=== PATIENT | male | born 1945 | race Caucasian/White ===

== ENCOUNTER 2021-11-06 17:55 | Inpatient (IN) | payer MEDICARE, OTHER, SELFPAY ==
--- NOTE | ~2021-11-06 | CT_ITS ---
EXAMINATION: CT CHEST WITHOUT CONTRAST CLINICAL INFORMATION: Question left lung nodule COMPARISON: Previous chest x-rays from earlier this month TECHNIQUE: Multidetector volumetric CT imaging of the chest was done. Axial MIP volume rendering provided. Sagittal and coronal reformatted images were obtained. This CT examination was performed using dose optimization techniques as appropriate, variously including the following: *Automated exposure control *Adjustment of mA and/or kV according to patient size (this includes techniques or standardized protocols for targeted exams where dose is matched to indication/reason for exam; i.e. extremities or head) *Use of iterative reconstruction technique DLP: 338 mGy-cm FINDINGS: PHARMACY OPERATIONS SPECIALIST: Unremarkable LUNGS: Exam is limited due to artifact from respiratory motion. The lung volumes are low. The lungs are clear. No pulmonary nodule is seen. No endobronchial or endotracheal lesion. MEDIASTINUM: Small mediastinal lymph nodes. No enlarged lymph nodes. Mild coronary artery and aortic valve calcification. Normal heart size. Upper normal-size ascending thoracic aorta. Trace pericardial effusion or thickening. PLEURA: There is no pleural effusion. No pleural mass or thickening. AXILLA: No lymphadenopathy. UPPER ABDOMEN: Fatty liver. Calcification in the body of the pancreas. OSSEOUS STRUCTURES: Congenital scoliosis, hemivertebrae and degenerative changes of the spine. CT/CT chest wo con IMPRESSION: No pulmonary nodule. Coronary artery and aortic valve calcification. Fleischner guidelines were followed.
--- NOTE | ~2021-11-06 | XR_ITS ---
EXAMINATION: XR ABDOMEN KUB CLINICAL INDICATION: Pre-MRI screening. COMPARISON: None TECHNIQUE: AP view of the abdomen. FINDINGS: The bowel gas pattern is normal with no evidence of ileus or obstruction. No unusual soft tissue calcifications are noted. No radiopaque metallic foreign body. The bones are unremarkable. XR/XR KUB IMPRESSION: No radiopaque metallic foreign body.
--- NOTE | ~2021-11-06 | CT_ITS ---
EXAMINATION: CT HEAD WITHOUT CONTRAST CLINICAL INFORMATION: Altered mental status COMPARISON: None TECHNIQUE: Contiguous axial imaging was performed from the skull base to vertex without intravenous administration of contrast. This CT examination was performed using dose optimization techniques as appropriate, variously including the following: *Automated exposure control *Adjustment of mA and/or kV according to patient size (this includes techniques or standardized protocols for targeted exams where dose is matched to indication/reason for exam; i.e. extremities or head) *Use of iterative reconstruction technique DLP: 818 mGy-cm FINDINGS: There is an area of hypodensity involving the subcortical white matter involving the left frontal lobe. No evidence of acute intracranial hemorrhage or extra-axial fluid collection. Periventricular white matter hypodensities, a nonspecific finding but most commonly on the basis of chronic small vessel ischemic disease. Although there is diffuse global volume loss, there is also prominent volume loss involving the temporal lobes. No evidence of mass lesion, mass effect or midline shift. The ventricles are symmetric in configuration and basal cisterns are patent. The calvarium is intact. Limited views of the paranasal sinuses are unremarkable. Mastoid air cells are underpneumatized but without effusion and middle ear cavities are clear. CT/CT head/brain wo con IMPRESSION: 1. Focal hypodensity of the subcortical white matter involving the left frontal lobe in the region of the inferior frontal gyrus, possibly acute to subacute infarct. 2. Temporal lobe atrophy. Recommend follow-up with brain MRI for further assessment. This critical result was discussed with Dr. Ashton at 9:20 PM on 11/06/2021 and it was ascertained that the content and urgency of the report was understood at the time of direct communication.
--- NOTE | ~2021-11-06 | XR_ITS ---
EXAMINATION: XR chest 1V CLINICAL INFORMATION: Cough COMPARISON: None TECHNIQUE: XR chest 1V Tubes and lines: None Lungs and pleura: Nodular opacity projecting over the left lower lobe could be a nipple shadow, bony versus lung nodule. No radiographic evidence of acute infiltrates or failure. Heart and mediastinum: The mediastinum is within normal limits.. Bones/soft tissue: Skeletal structures included are normal for patient's age. XR/XR chest 1V IMPRESSION: Limited portable technique. Round density projecting over the left lower lobe could be bony, nipple shadow versus lung nodule. If patient has no prior chest x-ray would recommend correlation with follow-up chest PA and lateral when patient's condition permits. No radiographic evidence of acute pneumonia..
--- NOTE | ~2021-11-06 | XR_ITS ---
EXAMINATION: XR CHEST CLINICAL INFORMATION: Altered mental status. Shortness of breath. COMPARISON: 11/06/2012 TECHNIQUE: Frontal view of the chest was obtained. FINDINGS: Normal symmetric lung volumes. No parenchymal consolidation. Left basilar subsegmental atelectasis. Previously described opacity at left lung base represented summation shadow. No pleural effusion. No pneumothorax. Cardiomediastinal silhouette and pulmonary vascularity are within normal limits. No acute osseous abnormalities. XR/XR chest 1V IMPRESSION: No acute pulmonary findings.
--- NOTE | ~2021-11-06 | MR_ITS ---
MRI OF THE BRAIN WITHOUT IV CONTRAST INDICATION: Left frontal lobe hypodensity. Bilateral temporal lobe loss. COMPARISON: Head CT 11/06/2021. TECHNIQUE: Multiplanar multisequence MR imaging of the brain was obtained without IV contrast. FINDINGS: There is a subacute appearing infarct within the left frontal lobe exhibiting cortical petechial hemorrhage without large volume hemorrhagic transformation. There is local cerebral sulcal effacement without midline shift. There is no hydrocephalus, extra-axial surface collection, or herniation. Global cerebral volume loss with a severe temporal lobe predominance that is highly suggestive of Alzheimer's type neurodegeneration for which clinical correlation is advised. The major flow voids at the skull base are preserved. The midline structures are normal. The cerebellar tonsils are normally positioned. The cerebellum and brainstem are normal. There is atlantooccipital assimilation bilaterally. Osseous marrow signal intensity is homogenous. Left globe prosthesis. MR/MR head/brain wo con IMPRESSION: - There is a subacute appearing infarct within the left frontal lobe exhibiting cortical petechial hemorrhage without large volume hemorrhagic transformation. There is local cerebral sulcal effacement without midline shift. - Global cerebral volume loss with a severe temporal lobe predominance that is highly suggestive of Alzheimer's type neurodegeneration for which clinical correlation is advised. Covering provider paged with these findings at 3:00 PM on 11/07/2021.
[2021-11-06 18:06] VITALS: BP 156/98; PULSE 95; RESP 18; TEMP 36.8; O2SAT 99; BMI 37.0
[2021-11-06 18:12] VITALS: BP 143/89; PULSE 93; TEMP 37.1; O2SAT 94
--- NOTE | 2021-11-06 18:14 | ECG_ITS ---
Test Reason : AMS Blood Pressure : / mmHG Vent. Rate : 093 BPM Atrial Rate : 093 BPM P-R Int : 152 ms QRS Dur : 078 ms QT Int : 356 ms P-R-T Axes : 005 008 049 degrees QTc Int : 442 ms Normal sinus rhythm Inferior infarct , age undetermined Abnormal ECG No previous ECGs available Referred By: Flora Ashton Electronically Signed By:JEROD GUNTRE
[2021-11-06 19:09] LABS: MANUAL DIFF FLAG NO
[2021-11-06 19:10] LABS: Basophils Percent Auto 0.3 % (0-2); Eosinophils Absolute Auto 0.3 X10*3/uL (0.0-0.4); Eosinophils Percent Auto 3.4 % (0-4); Hematocrit 44.1 % (42.0-52.0); Hemoglobin 15.5 g/dl (14.0-18.0); Imm Gran Abs Auto 0.04 X10*3/uL (0.00-0.03); Imm Gran Pct Auto 0.5 % (0.0-0.4); Lymphocytes Absolute Auto 3.4 X10*3/uL (1.2-4.9); Mean Corpuscular HGB Conc 35.1 g/dl (31.0-36.0); Mean Corpuscular Hemoglobin 31.1 pg (27.0-33.0); Mean Corpuscular Volume 88.4 fL (80.0-98.0); Mean Platelet Volume 10.9 fL (9.4-12.4); Monocytes Absolute Auto 0.8 X10*3/uL (0.1-1.2); Monocytes Percent Auto 8.8 % (2-11); Neutrophils Absolute Auto 4.2 x10*3/uL (2.0-8.3); Platelet Count 191 X10*3/uL (160-400); Red Blood Count 4.99 X10*6/uL (4.60-5.80); Red Cell Distribution Width 13.1 % (11.0-16.0); White Blood Count 8.8 X10*3/uL (4.8-10.8)
[2021-11-06 19:16] LABS: Prothrombin Time 11.9 SEC (10.0-13.1)
[2021-11-06 19:28] LABS: COVID-19 Test Negative (Negative); IDNOW Serial# 16C4AD1C
[2021-11-06 19:31] LABS: Alanine Aminotransferase 53 U/L (0-40); Albumin Level 4.4 g/dL (3.5-5.0); Alkaline Phosphatase 111 U/L (39-117); Anion Gap 16 (12-20); Aspartate Amino Transferase 29 U/L (5-37); Bilirubin Total 1.3 mg/dL (0.0-1.0); Blood Urea Nitrogen 21 mg/dL (9-16); Calcium 9.5 mg/dL (8.4-10.2); Carbon Dioxide 24 mmol/L (22-29); Chloride 98 mmol/L (96-108); Creatinine Clr Calc Pharmacy 50.4; Estimated Glomerular Filt Rate 52; Glucose Random 295 mg/dL (60-115); Lipase 22 U/L (8-78); Potassium 4.2 mmol/L (3.3-5.1); Sodium 134 mmol/L (135-145); Total Protein 7.5 g/dL (6.5-8.0)
--- NOTE | 2021-11-06 19:35 | ED_ITS ---
HPI - General Adult General Chief complaint: Failure to Thrive Stated complaint: dementia Time Seen by Provider: 11/06/21 18:14 Source: patient and family (Sister) Mode of arrival: EMS History of Present Illness HPI narrative: 76-year-old male who was sent by [facility] department for concerns regarding his living conditions after they were called by his neighbors. They report increasing dementia. We did discuss this case with the sister who lives in [facility] [place], who states that she has been trying to get him into a fdc facility. Patient's primary care provider attempted to file protection with state and was denied, the sister now has healthcare proxy designation and is open to discussing the case with case management. Patient denies any acute complaints at this time to include no fevers, chills, shortness of breath, chest pain, abdominal pain. Patient is noted to be very hard of hearing and otherwise it was endorse that patient's house was covered in spider webs with feces and urine all over on the floor. Related Data Allergies Allergy/AdvReac Type Severity Reaction Status Date / Time Unable to Assess Allergy Verified 11/06/21 18:14 Review of Systems Review of Systems: Pertinent positives and negatives as stated in HPI. PMF Past Medical History Source: nursing notes reviewed Medical History Dementia Social History Social History Advance Directives: No Advance Directives Information Provided: No Physical Exam ED Vital Signs: Vital Signs - 24 hr 11/06/21 18:06 11/06/21 18:12 Temperature 98.3 F 98.7 F Pulse Rate 95 93 Respiratory Rate 18 Blood Pressure 156/98 H 143/89 H Pulse Oximetry 99 94 Oxygen Delivery Method Room Air Room Air BMI result Body Mass Index 37.0 VITAL SIGNS: Reviewed. GENERAL: Unkempt, odor of urine, clothing is obviously soiled as well as stool noted to bilateral lower extremities, in no acute distress. HEAD: Normocephalic/atraumatic EYES: PERRLA, EOMI EARS: Ext canals without abnormality, TMs non-bulging and non-erythematous NOSE: Nares patent bilateral OROPHARYNX: no oral lesions noted, posterior pharynx clear, moist mucosa NECK: Supple, no adenopathy LUNGS: Normal breath sounds. No adventitious sounds or accessory muscle use. SpO2<99> CARDIOVASCULAR: Regular rate and rhythm without noted murmurs, no JVD or lower extremity edema. ABDOMEN: Soft, non-tender, non-distended with bowel sounds. MUSCULOSKELETAL: No tenderness, deformities, or effusions noted on gross inspection. EXTREMITIES: No cyanosis, clubbing or edema. SKIN: Inspection of the skin reveals no rashes NEUROLOGIC: Alert and oriented x 2. Strength and sensation to light touch were grossly intact x 4, patient is noted to ambulate with a steady gait. Course Course Course Narrative: 76-year-old male with history and clinical presentation consistent with concerns for advancing dementia and lives alone. There is question alcohol history and will place patient on CIWA. Review of laboratory investigations demonstrates hyperglycemia without evidence of DKA or HHS with a corrected sodium of 137. There is a mild elevation of the bilirubin and ALT of unclear significance but abdomen is benign on clinical exam. We did discuss with the sister who lives in [place] and she is aware that patient is here in the emergency room and will be completely evaluated. She states that she is more than willing to come to [place] should that be required, she endorses that she is the healthcare proxy and is more than willing to discuss and help make decisions regarding her brother's care. I discussed the case with the inpatient hospitalist for admission for subacute stroke. The patient is accepted for admission. Reevaluation(s) Reevaluation #1: [facility] called to state that patient has a noted left frontal lobe hypodensity that is questionable for infarct and also describes bilateral prominent temporal lobe loss. They recommend follow-up MRI. This was an unexpected finding and may explain patient's perceived ?worsening dementia?. MRI was ordered for the morning. Time: 21:34 Medical Decision Making Lab Data Result diagrams: 11/06/21 19:00 11/06/21 19:00 Labs: Lab Results 11/06/21 11/06/21 11/06/21 Range/Units 19:00 19:00 19:00 WBC 8.8 (4.8-10.8) X10*3/uL RBC 4.99 (4.60-5.80) X10*6/uL Hgb 15.5 (14.0-18.0) g/dl Hct 44.1 (42.0-52.0) % MCV 88.4 (80.0-98.0) fL MCH 31.1 (27.0-33.0) pg MCHC 35.1 (31.0-36.0) g/dl RDW 13.1 (11.0-16.0) % Plt Count 191 (160-400) X10*3/uL MPV 10.9 (9.4-12.4) fL Immature Gran % (Auto) 0.5 H (0.0-0.4) % Neut % (Auto) 48.0 (45-73) % Lymph % (Auto) 39.0 (20-40) % [place] % (Auto) 8.8 (2-11) % Eos % (Auto) 3.4 (0-4) % Baso % (Auto) 0.3 (0-2) % Lymph # (Auto) 3.4 (1.2-4.9) X10*3/uL [place] # (Auto) 0.8 (0.1-1.2) X10*3/uL Eos # (Auto) 0.3 (0.0-0.4) X10*3/uL Baso # (Auto) 0.0 (0.0-0.2) X10*3/uL Abs Immat Gran (auto) 0.04 H (0.00-0.03) X10*3/uL Absolute Neuts (auto) 4.2 (2.0-8.3) x10*3/uL Absolute Nucleated RBC 0.000 (0.0-0.012) X10*3/uL Nucleated RBC % (auto) 0.0 (0.0-0.2) /100WBC PT (10.0-13.1) SEC INR (0.9-1.1) Sodium 134 L (135-145) mmol/L Potassium 4.2 (3.3-5.1) mmol/L Chloride 98 (96-108) mmol/L Carbon Dioxide 24 (22-29) mmol/L Anion Gap 16 (12-20) BUN 21 H (9-16) mg/dL Creatinine 1.32 (0.5-1.4) mg/dL Estim Creat Clear Calc 50.4 Estimated GFR 52 Random Glucose 295 H (60-115) mg/dL Calcium 9.5 (8.4-10.2) mg/dL Magnesium 2.0 (1.6-2.6) mg/dL Total Bilirubin 1.3 H (0.0-1.0) mg/dL AST 29 (5-37) U/L ALT 53 H (0-40) U/L Alkaline Phosphatase 111 (39-117) U/L Troponin I High Sens 4.0 (<3.5-35.0) ng/L B-Natriuretic Peptide 22 (<100) pg/mL Total Protein 7.5 (6.5-8.0) g/dL Albumin 4.4 (3.5-5.0) g/dL Lipase 22 (8-78) U/L Ethyl Alcohol < 10 mg/dL COVID-19 (ERUM) (Negative) COVID-19 Clin Com 11/06/21 11/06/21 Range/Units 19:00 19:00 WBC (4.8-10.8) X10*3/uL RBC (4.60-5.80) X10*6/uL Hgb (14.0-18.0) g/dl Hct (42.0-52.0) % MCV (80.0-98.0) fL MCH (27.0-33.0) pg MCHC (31.0-36.0) g/dl RDW (11.0-16.0) % Plt Count (160-400) X10*3/uL MPV (9.4-12.4) fL Immature Gran % (Auto) (0.0-0.4) % Neut % (Auto) (45-73) % Lymph % (Auto) (20-40) % [place] % (Auto) (2-11) % Eos % (Auto) (0-4) % Baso % (Auto) (0-2) % Lymph # (Auto) (1.2-4.9) X10*3/uL [place] # (Auto) (0.1-1.2) X10*3/uL Eos # (Auto) (0.0-0.4) X10*3/uL Baso # (Auto) (0.0-0.2) X10*3/uL Abs Immat Gran (auto) (0.00-0.03) X10*3/uL Absolute Neuts (auto) (2.0-8.3) x10*3/uL Absolute Nucleated RBC (0.0-0.012) X10*3/uL Nucleated RBC % (auto) (0.0-0.2) /100WBC PT 11.9 (10.0-13.1) SEC INR 1.0 (0.9-1.1) Sodium (135-145) mmol/L Potassium (3.3-5.1) mmol/L Chloride (96-108) mmol/L Carbon Dioxide (22-29) mmol/L Anion Gap (12-20) BUN (9-16) mg/dL Creatinine (0.5-1.4) mg/dL Estim Creat Clear Calc Estimated GFR Random Glucose (60-115) mg/dL Calcium (8.4-10.2) mg/dL Magnesium (1.6-2.6) mg/dL Total Bilirubin (0.0-1.0) mg/dL AST (5-37) U/L ALT (0-40) U/L Alkaline Phosphatase (39-117) U/L Troponin I High Sens (<3.5-35.0) ng/L B-Natriuretic Peptide (<100) pg/mL Total Protein (6.5-8.0) g/dL Albumin (3.5-5.0) g/dL Lipase (8-78) U/L Ethyl Alcohol mg/dL COVID-19 (ERUM) Negative (Negative) COVID-19 Clin Com See Note ECG Data Attestation: I personally reviewed and interpreted this ECG as follows: Prior ECG tracings: not available for review Interpretation: Normal sinus rhythm, HR-93, no STEMI, OK/QRS/QTC are within normal limits. Critical Care Time Critical Care Time Critical Care Time: Yes Total Critical Care Time: 30 Attestation: I personally attest to this time spent taking care of the patient. Discharge Plan Discharge Clinical Impression: Dementia, Self neglect, Abnormal finding on CT scan Patient Disposition: Admitted As Inpatient
[2021-11-06 19:37] LABS: B Type Natriuretic Peptide 22 pg/mL (<100)
--- NOTE | 2021-11-06 20:03 | PC.NURSE ---
report received from Almaz DANIELS. pt resting comfortably on stretcher. no complaints. phone call update to sister Liza, health care proxy.
[2021-11-06 20:47] LABS: Ethanol < 10 mg/dL
[2021-11-06] MEDS: OLANZapine 10 MG TABLET PO (21:51)
--- NOTE | 2021-11-06 22:01 | PM.IMHP ---
History of Present Illness Date of Service: 11/06/21 Chief Complaint: AMS 76-year-old man with a past medical history of dementia, diabetes, presented to the hospital today with a chief complaint of altered mental status. Patient is confused. Alert and awake. Unable to provide information. I tried to call the patient family-not reachable Most of the history obtained from the records, ER staff. Reportedly chief to be bolus went to his house for safety check and brought into the hospital as he was confused and was found on the pieces, self neglect. Per staff patient's family has been trying to place him in the f[facility] facility. Patient's healthcare proxy is a sister who lives in [place]. Patient does not seem to be in pain. Moving all extremities equally. Review of all other systems is limited. ER course: Per ER team patient had normal gait, moving all extremities equally; CT head showed acute to subacute frontal CVA. Admitted for further management. [facility] Medical History Dementia Pertinent family history: Patient unable to provide information Social History Advance Directives: No Advance Directives Information Provided: No Meds Allergies Allergy/AdvReac Type Severity Reaction Status Date / Time Unable to Assess Allergy Verified 11/06/21 18:14 Physical Exam Vital Signs and Narrative: Vital Signs: Last Vital Signs Temp 98.7 F 11/06/21 18:12 Pulse 93 11/06/21 18:12 Resp 18 11/06/21 18:06 BP 143/89 H 11/06/21 18:12 Pulse Ox 94 11/06/21 18:12 O2 Del Method 11/06/21 18:12 BMI result Body Mass Index 37.0 Gen: Appears be in no acute distress HEENT: NCAT, Moist mucosa. Pulmonary: Vesicular breath sounds, fair air entry CVS: Normal S1-S2 Abdomen: BS+, Soft, Nontender Extremities: Warm well perfused Neuro: Alert and awake. Confused. Moves all extremities equally. Patient had normal gait per ER staff. Results Labs CBC and Chem 7: 11/06/21 19:00 11/06/21 19:00 Labs: Laboratory Results - last 24 hr 11/06/21 11/06/21 11/06/21 19:00 19:00 19:00 MCV 88.4 MCH 31.1 MCHC 35.1 RDW 13.1 Plt Count 191 MPV 10.9 Immature Gran % (Auto) 0.5 H Neut % (Auto) 48.0 Lymph % (Auto) 39.0 [place] % (Auto) 8.8 Eos % (Auto) 3.4 Baso % (Auto) 0.3 Lymph # (Auto) 3.4 [place] # (Auto) 0.8 Eos # (Auto) 0.3 Baso # (Auto) 0.0 Abs Immat Gran (auto) 0.04 H Absolute Neuts (auto) 4.2 Absolute Nucleated RBC 0.000 Nucleated RBC % (auto) 0.0 PT INR Anion Gap 16 Estim Creat Clear Calc 50.4 Estimated GFR 52 Random Glucose 295 H Calcium 9.5 Magnesium 2.0 Total Bilirubin 1.3 H AST 29 ALT 53 H Alkaline Phosphatase 111 B-Natriuretic Peptide 22 Total Protein 7.5 Albumin 4.4 Lipase 22 Ethyl Alcohol < 10 COVID-19 (ERUM) COVID-19 Clin Com 11/06/21 11/06/21 19:00 19:00 MCV MCH MCHC RDW Plt Count MPV Immature Gran % (Auto) Neut % (Auto) Lymph % (Auto) [place] % (Auto) Eos % (Auto) Baso % (Auto) Lymph # (Auto) [place] # (Auto) Eos # (Auto) Baso # (Auto) Abs Immat Gran (auto) Absolute Neuts (auto) Absolute Nucleated RBC Nucleated RBC % (auto) PT 11.9 INR 1.0 Anion Gap Estim Creat Clear Calc Estimated GFR Random Glucose Calcium Magnesium Total Bilirubin AST ALT Alkaline Phosphatase B-Natriuretic Peptide Total Protein Albumin Lipase Ethyl Alcohol COVID-19 (ERUM) Negative COVID-19 Clin Com See Note Imaging Radiologist's Impressions: Impressions Chest X-Ray 11/06/21 18:30 IMPRESSION: Limited portable technique. Round density projecting over the left lower lobe could be bony, nipple shadow versus lung nodule. If patient has no prior chest x-ray would recommend correlation with follow-up chest PA and lateral when patient's condition permits. No radiographic evidence of acute pneumonia.. Head CT 11/06/21 19:59 IMPRESSION: 1. Focal hypodensity of the subcortical white matter involving the left frontal lobe in the region of the inferior frontal gyrus, possibly acute to subacute infarct. 2. Temporal lobe atrophy. Recommend follow-up with brain MRI for further assessment. This critical result was discussed with Dr. Ashton at 9:20 PM on 11/06/2021 and it was ascertained that the content and urgency of the report was understood at the time of direct communication. Assessment and Plan (1) Self neglect: Status: Acute (2) Abnormal finding on CT scan: Status: Acute (3) Dementia: Status: Acute Plan 76-year-old man with a past medical history of dementia, diabetes, presented to the hospital today with a chief complaint of altered mental status. Altered mental status: CT head showed frontal CVA. Likely contributing to the patient's symptoms. PT/OT/speech and swallow eval Echocardiogram Neurology consult Neuro checks Fall precautions Urinalysis pending Patient received aspirin in the ER Abnormal chest x-ray: Likely pulmonary nodule. Repeat chest x-ray. Adult failure to thrive: Nutrition consult Diabetes: Insulin sliding scale DVT prophylaxis: SCD boots Code status: Full code Quality Stroke Does the patient have a stroke diagnosis?: No VTE Prior VTE?: No VTE Risk Level:: Medical - moderate - high VTE Device Contraindication: N/A - Device Ordered VTE Drug Contraindication: Treatment Not Indicated
[2021-11-06] MEDS: Aspirin 81 MG TAB.CHEW PO (22:17)
[2021-11-06 22:28] VITALS: BP 141/83; PULSE 91; TEMP 36.6; O2SAT 94
--- NOTE | 2021-11-07 | ECG_ITS ---
Test Reason : repeat Blood Pressure : / mmHG Vent. Rate : 077 BPM Atrial Rate : 077 BPM P-R Int : 164 ms QRS Dur : 076 ms QT Int : 396 ms P-R-T Axes : 015 003 052 degrees QTc Int : 448 ms Normal sinus rhythm Inferior infarct (cited on or before 06-NOV-2021) Abnormal ECG When compared with ECG of 06-NOV-2021 18:30, No significant change was found Referred By: Ron Brewer Electronically Signed By:JEROD GUNTER
[2021-11-07 04:51] LABS: MANUAL DIFF FLAG NO
[2021-11-07 04:54] LABS: Basophils Percent Auto 0.4 % (0-2); Eosinophils Absolute Auto 0.3 X10*3/uL (0.0-0.4); Hematocrit 42.1 % (42.0-52.0); Hemoglobin 14.6 g/dl (14.0-18.0); Imm Gran Abs Auto 0.03 X10*3/uL (0.00-0.03); Imm Gran Pct Auto 0.4 % (0.0-0.4); Lymphocytes Absolute Auto 2.8 X10*3/uL (1.2-4.9); Lymphocytes Percent Auto 40.3 % (20-40); Mean Corpuscular HGB Conc 34.7 g/dl (31.0-36.0); Mean Corpuscular Hemoglobin 30.6 pg (27.0-33.0); Mean Corpuscular Volume 88.3 fL (80.0-98.0); Mean Platelet Volume 11.4 fL (9.4-12.4); Monocytes Absolute Auto 0.7 X10*3/uL (0.1-1.2); Monocytes Percent Auto 10.2 % (2-11); Neutrophils Absolute Auto 3.1 x10*3/uL (2.0-8.3); Neutrophils Percent Auto 44.7 % (45-73); Platelet Count 190 X10*3/uL (160-400); Red Blood Count 4.77 X10*6/uL (4.60-5.80); Red Cell Distribution Width 12.7 % (11.0-16.0)
[2021-11-07 05:15] LABS: Anion Gap 16 (12-20); Blood Urea Nitrogen 23 mg/dL (9-16); Calcium 9.5 mg/dL (8.4-10.2); Carbon Dioxide 24 mmol/L (22-29); Chloride 99 mmol/L (96-108); Creatinine Clr Calc Pharmacy 58.9; Estimated Glomerular Filt Rate > 60; Glucose Random 314 mg/dL (60-115); Potassium 3.9 mmol/L (3.3-5.1); Sodium 135 mmol/L (135-145)
[2021-11-07 05:19] LABS: Cholesterol 276 mg/dL; HDL Cholesterol 30 mg/dL; Triglycerides 640 mg/dL
--- NOTE | 2021-11-07 07:00 | CA_ITS ---
Transthoracic Echocardiogram Patient (Last, First, Middle): Faizan Shelley, Gender: Male Date of : 1945 Age: 76 Procedure Date: 11/07/2021 Procedure Type: Transthoracic Echocardiogram Location: ER Height: 165.1 cm Weight: 100.7 kg BSA: 2.07 m2 Heart Rate: 75 bpm BP: 141 / 75 mmHg Sugar Cane Planter: SB Referring MD: Delbert Rogers MD Symptoms: cva Study Quality: Technically Difficult/No IV access for contrast ECG Rhythm: Sinus Conclusions: - The left ventricular systolic function is normal. The visually estimated ejection fraction is between 65-70%. - No obvious valvular pathology seen on this study. Findings Left Ventricle Normal left ventricular cavity size. There is mildly increased left ventricular wall thickness. The left ventricular systolic function is normal. The visually estimated ejection fraction is between 65-70%. Regional wall motion abnormalities can not be excluded due to suboptimal endocardial definition. Diastolic function is indeterminate on the basis of available data. Right Ventricle The right ventricle was not well visualized. Normal right ventricular cavity size. There is normal right ventricular systolic function. Atria The left atrium is normal in size. The right atrium was not well visualized. Aortic Valve The aortic valve was not well visualized. There is mild calcification of the aortic valve. There is no aortic valve stenosis. There is no aortic valve regurgitation. Mitral Valve The mitral valve appears normal. There is no mitral valve regurgitation. There is no mitral valve stenosis. Pulmonic Valve The pulmonic valve is likely normal. Tricuspid Valve There is trace tricuspid valve regurgitation. Tricuspid regurgitation envelope is inadequate for calculation of right ventricular systolic pressure. Great Vessels The asc aorta is normal in size. Venous The inferior vena cava was not well visualized. Pericardium/Pleural There is no evidence of pericardial effusion. Prior Study Comparison No prior study available for comparison. Recommendations, Care & Conclusions No obvious valvular pathology seen on this study. Measurements 2D Linear Measurements IVSd: 1.03 0.6-0.9/0.6-1.0 cm LVIDd: 4.97 3.9-5.3/4.2-5.9 cm LVIDd Index: 2.40 2.4-3.2/2.2-3.1 cm/m2 LVIDs: 3.42 2.0-3.6 cm LVPWd: 1.10 0.7-1.1 cm LA Diam: 3.40 2.7-3.8/3.0-4.0 cm LAIDs Index: 1.64 1.5-2.3 cm/m2 LV Mass: 244.55 67-162/88-224 g LV Mass Index: 118.14 43-95/49-115 g/m2 LVOT Diam: 2.20 3.0+(-)1.3 cm Mitral Valve MV Pk E: 0.44 MV PK A: 0.65 MV Decel Time: 223.00 E/A: 0.70 E'Lateral: 5.66 E'Medial: 3.37 E/E' Med: 12.90 E/E' Lat: 7.70 PHT: 65.00 MVA PHT: 3.38 Decel Fisher: 1.95 Aortic Valve AoV Pk Krunal: 1.33 AoV Mn Krunal: 0.85 AoV VTI: 0.20 AoV Pk Grad: 7.00 Aov Mn Grad: 3.00 GEORGINA Cont.VTI: 2.36 LVOT LVOT Pk Krunal: 0.74 LVOT Mn Krunal: 0.45 LVOT VTI: 0.12 LVOT Pk Grad: 2.00 LVOT Mn Grad: 1.00 LVOT Diam: 2.20 LVOT Area: 3.80 Diastolic Function MV Pk E: 0.44 MV Pk A: 0.65 E/A: 0.70 E'Medial: 3.37 E/E' Med: 12.90 E' Laterial: 5.66 E/E' Lat: 7.70 Right Ventricle TAPSE (mm): 19.30 TVS' Krunal: 12.90 Great Vessels Aorta Ao Asc: 3.90 2.1-3.4 cm Pulmonary Valve PV Pk Krunal: 0.77 Peak PV Grad: 2.00 Updated in Other Vendor System with Status of Final Peyman Scott MD electronically signed on 11/07/2021 4:53:08 PM with status of Final
--- NOTE | 2021-11-07 07:18 | PHA.MEDREC ---
Pharmacy Consult ? Medication Reconciliation Pharmacy has completed the medication reconciliation. Pt's claim history has not shown anything filled since July 2021 X 30 day supply. Based on note/pt dementia no known home meds.
[2021-11-07 07:28] LABS: Glucose, Whole Blood 308 mg/dL (60-115)
--- NOTE | 2021-11-07 08:07 | PC.NURSE ---
Pt is Alert, oriented to person only at this time. Pt ambulatory with minimal assistance, attempted to look for his clothes to leave. Reoriented to place and date. Denies pain at this time, NPO per orders. MRI requesting screening form, this RN unable to find HCP, Liza's phone number. MRI made aware. Call turner within reach. Will continue to monitor.
[2021-11-07 08:24] LABS: Estimated Average Glucose 258 mg/dL; Hemoglobin A1c % 10.6 %
[2021-11-07 09:42] LABS: Folate 10.8 ng/mL (> or = 4.0); Vitamin B12 261 pg/mL (200-900)
--- NOTE | 2021-11-07 09:55 | PM.NEUROCN ---
History of Present Illness Data of Consult Service Date: 11/07/21 Primary Care Provider: Unknown Physician HPI Reason for consult: Dementia 76 years old man who was brought from home as he was found to be confused not taking care of himself. He was unable to provide any meaningful history. He said that he wanted to leave. He also has severe hip difficulty hearing and communication with him was difficult Review of Systems Review of Systems: Severe hearing difficulty PMFSH Past Medical History Medical History Dementia Social History Social History Advance Directives: No Advance Directives Information Provided: No Meds Allergies Allergy/AdvReac Type Severity Reaction Status Date / Time Unable to Assess Allergy Verified 11/06/21 18:14 Active Medications: Current Medications Acetaminophen (Acetaminophen 325 Mg Tablet) 650 mg PO Q6H PRN PRN Reason: Pain, Mild (Pain Scale 1-3) Aspirin (Aspirin 81 Mg Tab.Chew) 81 mg PO DAILY [facility] Atorvastatin Calcium (Atorvastatin Calcium 40 Mg Tablet) 40 mg PO BEDTIME [facility] Dextrose (Dextrose 50 % 25 Gm/50 Ml Syringe) 25 gm IVPUSH Q15M PRN; Protocol PRN Reason: per Hypoglycemia Standing Ord. Erythromycin (Erythromycin Base 0.5% Oph Oin 1 Gm Tube) 1 cm EYE-RIGHT QID [facility] Fenofibrate (Fenofibrate 54 Mg Tablet) 54 mg PO DAILY [facility] Glucose (Glucose Gel 15 Gm Gel..Gram.) 15 gm PO Q15M PRN; Protocol PRN Reason: per Hypoglycemia Standing Ord. Insulin Human Lispro (Insulin Lispro 100 Unit/Ml 3 Ml Vial) 0 unit SUBCUT QIDACHS [facility]; Protocol Last Admin: 11/07/21 08:41 Dose: Not Given Melatonin (Melatonin 3 Mg Tablet) 6 mg PO BEDTIME PRN PRN Reason: Insomnia Multivitamins/Vitamin C (Multivitamin Tablet) 1 tab PO DAILY [facility] Senna (Sennosides 8.6 Mg Tablet) 17.2 mg PO BEDTIME PRN PRN Reason: Constipation Sodium Chloride (0.9 % Sodium Chloride Flush 3 Ml Syringe) 3 ml IVFLUSH QSHIFT [facility] Last Admin: 11/07/21 00:31 Dose: Not Given Thiamine HCl (Thiamine Hcl 100 Mg Tablet) 100 mg PO DAILY [facility] Home Medications Medication Instructions Recorded Confirmed Last Taken Type No Known Home Meds 11/07/21 11/07/21 Unknown History Physical Exam Vital Signs: Vital Signs: Last Vital Signs Temp 97.8 F 11/06/21 22:28 Pulse 91 11/06/21 22:28 Resp 18 11/06/21 18:06 BP 141/83 H 11/06/21 22:28 Pulse Ox 94 11/06/21 22:28 O2 Del Method 11/06/21 22:28 BMI result Body Mass Index 37.0 Neuro: Other: Alert and awake restless stating that he wanted to leave. I tried to communicate with him shouting close to his ears and at times he understood one-step command. He told me his full name and followed some one-step commands. Face was symmetrical. Visual martinez seem to be full. There was no obvious focal arm or leg weakness. Deep tendon reflexes were absent with flexor plantars. Results Labs CBC & Chem 7: 11/07/21 04:19 11/07/21 04:19 Labs: Short CBC 11/06/21 11/07/21 Range/Units 19:00 04:19 WBC 8.8 7.0 (4.8-10.8) X10*3/uL Hgb 15.5 14.6 (14.0-18.0) g/dl Hct 44.1 42.1 (42.0-52.0) % Plt Count 191 190 (160-400) X10*3/uL BMP 11/06/21 11/07/21 19:00 04:19 Sodium 134 L 135 Potassium 4.2 3.9 Chloride 98 99 Carbon Dioxide 24 24 BUN 21 H 23 H Creatinine 1.32 1.13 Calcium 9.5 9.5 Liver Function 11/06/21 Range/Units 19:00 Total Bilirubin 1.3 H (0.0-1.0) mg/dL AST 29 (5-37) U/L ALT 53 H (0-40) U/L Alkaline Phosphatase 111 (39-117) U/L Albumin 4.4 (3.5-5.0) g/dL Severe bitemporal atrophy was noted. 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 On top of that, he has severe hearing difficulty. This was very difficult combination. My recommendation is comfort measures only. Family or healthcare proxy should be educated about this problem and only measures that could improve his quality of life should be instituted. (2) Alzheimer's dementia: Status: Acute (3) Hearing impairment: Status: Acute Procedures Date of Service Date of Service: 11/07/21
[2021-11-07] MEDS: Aspirin 81 MG TAB.CHEW PO (10:04)
[2021-11-07] MEDS: Erythromycin Base 0.5% Oph Oin 1 GM TUBE 1 CM EYE-RIGHT ×4 (10:04→23:36)
[2021-11-07] MEDS: Multivitamin TABLET 1 TAB PO (10:04)
[2021-11-07] MEDS: Thiamine HCL 100 MG TABLET PO (10:04)
[2021-11-07 10:06] LABS: Thyroid Stimulating Hormone 7.14 uIU/mL (0.32-4.0)
[2021-11-07 10:20] VITALS: BP 146/80; PULSE 75; RESP 17; O2SAT 95
--- NOTE | 2021-11-07 12:19 | P.PNIM_ITS ---
Subjective Subjective Date of Service: 11/07/21 Interval History: Confused. Wants to leave here but unaware where he is or what day it is. Unable to obtain ROS. Review of Systems Review of Systems: Yes Unobtainable due to mental status Physical Exam Vital Signs: Vital Signs: Last Vital Signs Temp 97.8 F 11/06/21 22:28 Pulse 75 11/07/21 10:20 Resp 17 11/07/21 10:20 BP 146/80 H 11/07/21 10:20 Pulse Ox 95 11/07/21 10:20 O2 Del Method 11/07/21 10:20 BMI result Body Mass Index 37.0 Gen: in no acute distress HEENT: R conjuntivae injected and with mucopurulent discharge, moist mucus membranes Neck: supple Lungs: clear to auscultation bilaterally Heart: regular rate and rhythm, no murmurs Abd: soft, non-tender, non-distended Ext: no edema Skin: warm/well-perfused Neuro: disoriented Psych: impaired insight Objective Data Active Medications Acetaminophen (Acetaminophen 325 Mg Tablet) 650 mg PO Q6H PRN PRN Reason: Pain, Mild (Pain Scale 1-3) Aspirin (Aspirin 81 Mg Tab.Chew) 81 mg PO DAILY [facility] Last Admin: 11/07/21 10:04 Dose: 81 mg Documented By: PACHECO Atorvastatin Calcium (Atorvastatin Calcium 40 Mg Tablet) 40 mg PO BEDTIME [facility] Dextrose (Dextrose 50 % 25 Gm/50 Ml Syringe) 25 gm IVPUSH Q15M PRN; Protocol PRN Reason: per Hypoglycemia Standing Ord. Erythromycin (Erythromycin Base 0.5% Oph Oin 1 Gm Tube) 1 cm EYE-RIGHT QID [facility] Last Admin: 11/07/21 10:04 Dose: 1 cm Documented By: PACHECO Fenofibrate (Fenofibrate 54 Mg Tablet) 54 mg PO DAILY [facility] Last Admin: 11/07/21 11:58 Dose: Not Given Documented By: PACHECO Non-Admin Reason: Med not available, called pharmacy, never rec Glucose (Glucose Gel 15 Gm Gel..Gram.) 15 gm PO Q15M PRN; Protocol PRN Reason: per Hypoglycemia Standing Ord. Insulin Human Lispro (Insulin Lispro 100 Unit/Ml 3 Ml Vial) 0 unit SUBCUT QIDACHS [facility]; Protocol Last Admin: 11/07/21 08:41 Dose: Not Given Documented By: PACHECO Non-Admin Reason: NPO Melatonin (Melatonin 3 Mg Tablet) 6 mg PO BEDTIME PRN PRN Reason: Insomnia Multivitamins/Vitamin C (Multivitamin Tablet) 1 tab PO DAILY [facility] Last Admin: 11/07/21 10:04 Dose: 1 tab Documented By: PACHECO Senna (Sennosides 8.6 Mg Tablet) 17.2 mg PO BEDTIME PRN PRN Reason: Constipation Sodium Chloride (0.9 % Sodium Chloride Flush 3 Ml Syringe) 3 ml IVFLUSH QSHIFT [facility] Last Admin: 11/07/21 11:58 Dose: Not Given Documented By: PACHECO Non-Admin Reason: No Access Thiamine HCl (Thiamine Hcl 100 Mg Tablet) 100 mg PO DAILY [facility] Last Admin: 11/07/21 10:04 Dose: 100 mg Documented By: PACHECO Labs CBC & Chem 7: 11/07/21 04:19 11/07/21 04:19 Labs: Laboratory Results - last 24 hr 11/06/21 11/06/21 11/06/21 19:00 19:00 19:00 MCV 88.4 MCH 31.1 MCHC 35.1 RDW 13.1 Plt Count 191 MPV 10.9 Immature Gran % (Auto) 0.5 H Neut % (Auto) 48.0 Lymph % (Auto) 39.0 [place] % (Auto) 8.8 Eos % (Auto) 3.4 Baso % (Auto) 0.3 Lymph # (Auto) 3.4 [place] # (Auto) 0.8 Eos # (Auto) 0.3 Baso # (Auto) 0.0 Abs Immat Gran (auto) 0.04 H Absolute Neuts (auto) 4.2 Absolute Nucleated RBC 0.000 Nucleated RBC % (auto) 0.0 PT INR Anion Gap 16 Estim Creat Clear Calc 50.4 Estimated GFR 52 POC Glucose Random Glucose 295 H Estimat Average Glucose Hemoglobin A1c % Calcium 9.5 Magnesium 2.0 Total Bilirubin 1.3 H AST 29 ALT 53 H Alkaline Phosphatase 111 B-Natriuretic Peptide 22 Total Protein 7.5 Albumin 4.4 Triglycerides Cholesterol LDL Cholesterol, Calc HDL Cholesterol Lipase 22 Vitamin B12 Folate TSH Ethyl Alcohol < 10 COVID-19 ([facility]) COVID-19 Clin Com 11/06/21 11/06/21 11/07/21 19:00 19:00 04:19 MCV 88.3 MCH 30.6 MCHC 34.7 RDW 12.7 Plt Count 190 MPV 11.4 Immature Gran % (Auto) 0.4 Neut % (Auto) 44.7 L Lymph % (Auto) 40.3 H [place] % (Auto) 10.2 Eos % (Auto) 4.0 Baso % (Auto) 0.4 Lymph # (Auto) 2.8 [place] # (Auto) 0.7 Eos # (Auto) 0.3 Baso # (Auto) 0.0 Abs Immat Gran (auto) 0.03 Absolute Neuts (auto) 3.1 Absolute Nucleated RBC 0.000 Nucleated RBC % (auto) 0.0 PT 11.9 INR 1.0 Anion Gap Estim Creat Clear Calc Estimated GFR POC Glucose Random Glucose Estimat Average Glucose Hemoglobin A1c % Calcium Magnesium Total Bilirubin AST ALT Alkaline Phosphatase B-Natriuretic Peptide Total Protein Albumin Triglycerides Cholesterol LDL Cholesterol, Calc HDL Cholesterol Lipase Vitamin B12 Folate TSH Ethyl Alcohol COVID-19 ([facility]) Negative COVID-19 Clin Com See Note 11/07/21 11/07/21 11/07/21 04:19 04:19 04:19 MCV MCH MCHC RDW Plt Count MPV Immature Gran % (Auto) Neut % (Auto) Lymph % (Auto) [place] % (Auto) Eos % (Auto) Baso % (Auto) Lymph # (Auto) [place] # (Auto) Eos # (Auto) Baso # (Auto) Abs Immat Gran (auto) Absolute Neuts (auto) Absolute Nucleated RBC Nucleated RBC % (auto) PT INR Anion Gap 16 Estim Creat Clear Calc 58.9 Estimated GFR > 60 POC Glucose Random Glucose 314 H Estimat Average Glucose 258 Hemoglobin A1c % 10.6 Calcium 9.5 Magnesium Total Bilirubin AST ALT Alkaline Phosphatase B-Natriuretic Peptide Total Protein Albumin Triglycerides 640 Cholesterol 276 LDL Cholesterol, Calc TNP HDL Cholesterol 30 Lipase Vitamin B12 Folate TSH 7.14 H Ethyl Alcohol COVID-19 ([facility]) COVID-19 Clin Com 11/07/21 11/07/21 04:19 07:25 MCV MCH MCHC RDW Plt Count MPV Immature Gran % (Auto) Neut % (Auto) Lymph % (Auto) [place] % (Auto) Eos % (Auto) Baso % (Auto) Lymph # (Auto) [place] # (Auto) Eos # (Auto) Baso # (Auto) Abs Immat Gran (auto) Absolute Neuts (auto) Absolute Nucleated RBC Nucleated RBC % (auto) PT INR Anion Gap Estim Creat Clear Calc Estimated GFR POC Glucose 308 H Random Glucose Estimat Average Glucose Hemoglobin A1c % Calcium Magnesium Total Bilirubin AST ALT Alkaline Phosphatase B-Natriuretic Peptide Total Protein Albumin Triglycerides Cholesterol LDL Cholesterol, Calc HDL Cholesterol Lipase Vitamin B12 261 Folate 10.8 TSH Ethyl Alcohol COVID-19 ([facility]) COVID-19 Clin Com Assessment and Plan (1) Dementia: Status: Acute (2) Self neglect: Status: Acute Plan hospital d#2 76yo M with dementia, DM2 police went to house for safety check and he was brought in due to self-neglect # dementia with self-neglect # possible frontal CVA subacute-acute - CT head with frontal CVA- started ASA + statin. MRI + Neuro consult pending. PT recommends 24-hr care. GIFT WRAPPER recommended regular diet/thin liquids. - will need long-term care; CM consult; continue to try to try to contact family # possible pulmonary nodule - CT chest # hyperTG - statin, fibrate # conjunctivitis - erythromycin ointment # FTT - nutrition consultation, vitamins # DM2, A1c 10.6 - correction-dose lispro; may need glargine as well if continued hyperglycemia # VTE ppx - LMWH Quality Stroke Does the patient have a stroke diagnosis?: No VTE Prior VTE?: No VTE Risk Level:: Medical - moderate - high VTE Device Contraindication: N/A - Device Ordered VTE Drug Contraindication: Treatment Not Indicated
--- NOTE | 2021-11-07 13:20 | MHC.CM.PN ---
Addendum entered by Christelle Velazco 11/07/21 16:04: CM RECEIVED A RETURN CALL FROM PTS SISTER, ROSARIO WHO REPORTS THE PT HAS LIVED ALONE FOR THE PAST YEAR SINCE THEIR MOTHER WENT TO A INTERMEDIATE SHE REPORTS PRIOR TO THAT, THEIR MOTHER DID EVERYTHING FOR THE PT ROSARIO REPORTS FOR THE PAST YEAR, SHE HAS BEEN COMING FROM [place] EVERY TWO MONTHS TO ASSIST PT WITH HOUSEWORK SHE REPORTS THE PT WAS ALSO ACTIVE WITH [employer] AND HAS NO OTHER SERVICES PT ALSO USED NO DME ROSARIO REPORTS SHE WILL BE HERE ON SUNDAY AND WILL BRING PTS HCP AND POA SHE IS AWARE A REFERRAL WILL BE MADE TO [facility] FOR [facility] IMM DELIVERED VIA T/C , COPY SENT TO MEDICAL RECORDS PT WILL REQUIRE MH COLE AND LTC PLACEMENT POSSIBLY STR WITH LTC TRANSITION BLS TRANSPORT Original Note: B[facility]DEN RECEIVED A CALL FROM DAWN RAZA [phone], AT [facility] SHE INDICATED A REPORT WAS FILED WITH THEM. SHE PROVIDED THE NUMBER FOR PTS SISTERARELI [phone] AND HIS PCP IS ALEX[facility] NOVA CM ATTEMPTED TO REACH PTS SISTER AT THE NUMBER ABOVE VM LEFT REQUESTING A RETURN CALL
[2021-11-07] MEDS: OLANZapine 10 MG VIAL 5 MG IM (13:50)
[2021-11-07] MEDS: Enoxaparin Sodium 40 MG/0.4 ML SYRINGE SUBCUT (13:50)
--- NOTE | 2021-11-07 14:22 | MHC.SL.SWA ---
Speech Pathologist Impression: Risk of Aspiration Due to: Poor PO Intake Reduced Cognition Dysphasia Diet Status: Pt's decreased cognitive status is primary risk for aspiration. Liquid Consistency and Strategies for Safe Swallow: Liquid Intake Recommendation: Thin Liquid Intake Strategies: Small Sips Solid Food Consistency: Dietary Recommendations: Regular Additional Modifications to Solid Foods: Patient is able to self feed, but may need assistance/supervision to be oriented to food on tray, have items opened for him, some initial cuing and periodic monitoring as patient may be impulsive and confused. Oral Medication Intake: Whole with Liquid Please contact the pharmacy regarding appropriate crushable or liquid drug formulations that are available whenever modified delivery is recommended. Compensatory Strategies and Precautions to be Taken for Safe Swallow: Sitting Upright (90 deg) Small Bites and Sips Alternate Liquids/Solids Supervision While Eating and Drinking for Safe Swallow: Intermittent Supervision Foods to Avoid: Swallowing Recommended Treatments: Compens. Strategy Educat. Recommendation for Speech: Inpatient Speech Therapy Comment: Patient demonstrated a mild delay initiating swallow (absent swallow trigger) on all liquid and food consistencies presented, however no clinical signs of aspiration on any consistency (food or liquid). Oral phase on all consistencies is WFL. Patient is able to independently feed self, however is highly confused and potentially impulsive, so will require some supervision during meals. Recommend START diet of REGULAR foods with THIN liquids, pills WHOLE with Liquid. Diet recommendation sent by secure text to Maria M BENITO, discussed in person with nursing in the ED. ULTIMATE HOOPS REFEREE will follow up X1 for toleration of recommended diet. Frequency/Duration: Date Range for Service Req: Timeline to reassess: Shearing Supervisor Clinican/Clinical Fellow: No Supervisory Statement: I have reviewed and agree with the student/clinical fellow's documentation: N/A Speech Language Pathologist: Cindy Patel M.A., CCC-ULTIMATE HOOPS REFEREE
--- NOTE | 2021-11-07 15:47 | MHC.CLN ---
RE: CONSULT FOR FAILURE TO THRIVE HT 65 WT 222# IBW 136#+/-10% PT IS 163% IBW INDICATES OBESE; BMI 37 ESTIMATED NUTRITION NEEDS (ENN) BASED ON CMW: 1771KCALS, 77G PROTEIN, 2310ML H20 LABS: A1C 10.6% ALBUMIN 4.4 -WNL DIET RX; REGULAR-PT MAY BENEFIT FROM 1800DM DIET R/T DM AND ELEVATED A1C LEVEL MASTER STEAM YACHT RECOMMENDS REGULAR DIET CONSISTENCY PT DOES NOT APPEAR MALNOURISHED. PT IS NOT FAILURE TO THRIVE R/T NUTRITION PT NEEDS PLACEMENT R/T DEMENTIA RECOMMEND 1800DM DIET MONITOR PO INTAKE CLOSELY
[2021-11-07 16:00] VITALS: BP 140/82; PULSE 90; RESP 16; TEMP 36.6; O2SAT 98
--- NOTE | 2021-11-07 16:13 | PC.NURSE ---
PATIENT WAS INC OF URIME ,CARE GIVEN BEDDING CHANGE ,
[2021-11-07 16:46] LABS: Glucose, Whole Blood 331 mg/dL (60-115)
[2021-11-07] MEDS: Insulin Lispro 100 UNIT/ML 3 ML VIAL SUBCUT ×3 (18:36→23:36)
[2021-11-07 19:32] VITALS: BP 167/87; PULSE 100; RESP 16; TEMP 36.7; O2SAT 98
--- NOTE | 2021-11-07 19:34 | PC.NURSE ---
PATIENT WAS INC OF URINE ,CARE GIVEN .
[2021-11-07 20:00] VITALS: BP 146/83; PULSE 102; RESP 17; TEMP 36.8; O2SAT 94
[2021-11-07 21:17] LABS: Glucose, Whole Blood 413 mg/dL (60-115)
[2021-11-07 23:28] VITALS: BP 145/85; PULSE 105; RESP 18; TEMP 36.9; O2SAT 94
[2021-11-07] MEDS: Atorvastatin Calcium 40 MG TABLET PO (23:36)
[2021-11-07] MEDS: 0.9 % Sodium Chloride Flush 3 ML SYRINGE IVFLUSH (23:37)
[2021-11-08 03:22] VITALS: BP 128/82; PULSE 102; RESP 18; TEMP 36.5; O2SAT 96
[2021-11-08 04:04] VITALS: BMI 36.1
[2021-11-08 07:22] VITALS: BP 148/79; PULSE 93; RESP 20; TEMP 36.8; O2SAT 94
[2021-11-08 07:43] LABS: Alanine Aminotransferase 41 U/L (0-40); Albumin Level 4.1 g/dL (3.5-5.0); Alkaline Phosphatase 131 U/L (39-117); Anion Gap 14 (12-20); Aspartate Amino Transferase 17 U/L (5-37); Bilirubin Total 0.5 mg/dL (0.0-1.0); Blood Urea Nitrogen 18 mg/dL (9-16); Calcium 9.8 mg/dL (8.4-10.2); Carbon Dioxide 26 mmol/L (22-29); Chloride 99 mmol/L (96-108); Creatinine Clr Calc Pharmacy 53.8; Estimated Glomerular Filt Rate 57; Glucose Random 381 mg/dL (60-115); Potassium 4.4 mmol/L (3.3-5.1); Sodium 135 mmol/L (135-145); Total Protein 7.2 g/dL (6.5-8.0)
--- NOTE | 2021-11-08 08:04 | MHC.CDI.CONC ---
CDI Concurrent Query Documentation Clarification: PHYSICIAN'S DOCUMENTATION REQUEST Date of Query: 11/08/21804 Patient Name: Faizan Shelley Admit Date: 11/06/21 Dear Doctor, A review of the medical record indicates additional documentation may be needed. Please review below and update the documentation accordingly. Clinical Indicators: Risk Factors/Clinical Indicators/Treatments PN: Failure to thrive Clinical nutrition note 11/07 - Patient does not appear malnourished, patient is not failure to thrive. Labs: A1C 10.6% Albumin 4.4 WNL Diet: Regular Please clarify the following: Failure to thrive [Diagnosis] was present on admission [Diagnosis] was present on admission and is still being monitored, evaluated, or treated [Diagnosis] was ruled out [Diagnosis] is still a likely, suspected, probable diagnosis Other (please specify) Unable to determine Use of terms such as suspected, likely, concern for, or probable (associated with a specific diagnosis that is being evaluated, monitored, or treated as if it exists) are acceptable and can be coded in the inpatient setting, when documented at the time of discharge. Thank you, Renetta Wilder [facility], CDIS Extension: [phone] Please use your independent medical judgment in providing your response. THIS QUERY IS PART OF THE PERMANENT MEDICAL RECORD Provider Response: Other Other Diagnosis: no FTT
[2021-11-08 08:09] LABS: Glucose, Whole Blood 388 mg/dL (60-115)
[2021-11-08] MEDS: Insulin Glargine,Hum.rec.anlog 100 UNIT/ML 10 ML VIAL 15 UNIT SUBCUT (08:26)
[2021-11-08] MEDS: Fenofibrate 54 MG TABLET PO (08:29)
[2021-11-08] MEDS: Aspirin 81 MG TAB.CHEW PO (08:29)
[2021-11-08] MEDS: Insulin Lispro 100 UNIT/ML 3 ML VIAL SUBCUT ×4 (08:29→21:21)
[2021-11-08] MEDS: Erythromycin Base 0.5% Oph Oin 1 GM TUBE 1 CM EYE-RIGHT ×3 (08:29→20:26)
[2021-11-08] MEDS: Multivitamin TABLET 1 TAB PO (08:30)
[2021-11-08] MEDS: Thiamine HCL 100 MG TABLET PO (09:44)
[2021-11-08 10:53] VITALS: BP 117/58; PULSE 101; RESP 20; TEMP 36.2; O2SAT 94
[2021-11-08] MEDS: Enoxaparin Sodium 40 MG/0.4 ML SYRINGE SUBCUT (11:13)
[2021-11-08 11:17] LABS: Glucose, Whole Blood 398 mg/dL (60-115)
--- NOTE | 2021-11-08 12:25 | P.PNIM_ITS ---
Subjective Subjective Date of Service: 11/08/21 Interval History: No complaints but very confused Review of Systems Review of Systems: Yes Unobtainable due to mental status Physical Exam Vital Signs: Vital Signs: Last Vital Signs Temp 97.2 F 11/08/21 10:53 Pulse 101 H 11/08/21 10:53 Resp 20 11/08/21 10:53 BP 117/58 L 11/08/21 10:53 Pulse Ox 94 11/08/21 10:53 O2 Del Method 11/08/21 10:53 BMI result Body Mass Index 36.1 Gen: in no acute distress HEENT: R conjunctivae injected and with mucopurulent discharge, moist mucus membranes Neck: supple Lungs: clear to auscultation bilaterally Heart: regular rate and rhythm, no murmurs Abd: soft, non-tender, non-distended Ext: no edema Skin: warm/well-perfused Neuro: disoriented Psych: impaired insight Objective Data Active Medications Acetaminophen (Acetaminophen 325 Mg Tablet) 650 mg PO Q6H PRN PRN Reason: Pain, Mild (Pain Scale 1-3) Aspirin (Aspirin 81 Mg Tab.Chew) 81 mg PO DAILY [facility] Last Admin: 11/08/21 08:29 Dose: 81 mg Documented By: [place] Atorvastatin Calcium (Atorvastatin Calcium 40 Mg Tablet) 40 mg PO BEDTIME [facility] Last Admin: 11/07/21 23:36 Dose: 40 mg Documented By: JOEL Dextrose (Dextrose 50 % 25 Gm/50 Ml Syringe) 25 gm IVPUSH Q15M PRN; Protocol PRN Reason: per Hypoglycemia Standing Ord. Enoxaparin Sodium (Enoxaparin Sodium 40 Mg/0.4 Ml Syringe) 40 mg SUBCUT Q24H [facility] Last Admin: 11/08/21 11:13 Dose: 40 mg Documented By: [place] Erythromycin (Erythromycin Base 0.5% Oph Oin 1 Gm Tube) 1 cm EYE-RIGHT QID [facility] Last Admin: 11/08/21 08:29 Dose: 1 cm Documented By: [place] Fenofibrate (Fenofibrate 54 Mg Tablet) 54 mg PO DAILY [facility] Last Admin: 11/08/21 08:29 Dose: 54 mg Documented By: [place] Glucose (Glucose Gel 15 Gm Gel..Gram.) 15 gm PO Q15M PRN; Protocol PRN Reason: per Hypoglycemia Standing Ord. Insulin Glargine (Insulin Glargine,Hum.Rec.Anlog 100 Unit/Ml 10 Ml Vial) 15 unit SUBCUT DAILY [facility] Last Admin: 11/08/21 08:26 Dose: 15 unit Documented By: [place] Insulin Human Lispro (Insulin Lispro 100 Unit/Ml 3 Ml Vial) 0 unit SUBCUT QIDACHS [facility]; Protocol Last Admin: 11/08/21 11:14 Dose: 12 unit Documented By: [place] Melatonin (Melatonin 3 Mg Tablet) 6 mg PO BEDTIME PRN PRN Reason: Insomnia Multivitamins/Vitamin C (Multivitamin Tablet) 1 tab PO DAILY [facility] Last Admin: 11/08/21 08:30 Dose: 1 tab Documented By: [place] Senna (Sennosides 8.6 Mg Tablet) 17.2 mg PO BEDTIME PRN PRN Reason: Constipation Sodium Chloride (0.9 % Sodium Chloride Flush 3 Ml Syringe) 3 ml IVFLUSH QSHIFT [facility] Last Admin: 11/08/21 09:45 Dose: Not Given Documented By: [place] Non-Admin Reason: No Access Thiamine HCl (Thiamine Hcl 100 Mg Tablet) 100 mg PO DAILY [facility] Last Admin: 11/08/21 09:44 Dose: 100 mg Documented By: [place] Labs CBC & Chem 7: 11/07/21 04:19 11/08/21 06:27 Labs: Laboratory Results - last 24 hr 11/07/21 11/07/21 11/07/21 04:19 16:43 21:13 Anion Gap Estim Creat Clear Calc Estimated GFR POC Glucose 331 H 413 H* Random Glucose Calcium Total Bilirubin AST ALT Alkaline Phosphatase Total Protein Albumin Free T4 0.90 11/08/21 11/08/21 11/08/21 06:27 07:25 10:52 Anion Gap 14 Estim Creat Clear Calc 53.8 Estimated GFR 57 POC Glucose 388 H* 398 H* Random Glucose 381 H* Calcium 9.8 Total Bilirubin 0.5 AST 17 D ALT 41 H Alkaline Phosphatase 131 H Total Protein 7.2 Albumin 4.1 Free T4 Assessment and Plan (1) Dementia: Status: Acute (2) Self neglect: Status: Acute Plan hospital d#3 76yo M with dementia, DM2 police went to house for safety check and he was brought in due to self-neglect # dementia with self-neglect, Alzheimer-type # frontal CVA subacute-acute - ASA held due to petechial hemorrhage, continue statin. PT recommends 24-hr care. DISPUTE COORDINATOR recommended regular diet/thin liquids. will need long-term care; CM consult; sister coming in # hyperTG - statin, fibrate # conjunctivitis - erythromycin ointment # DM2, A1c 10.6, with hyperglycemia - increase lispro sliding scale and start glargine for basal isulin requirement # VTE ppx - LMWH In my clinical judgment, the patient requires continued hospitalization for the following reasons: safe disposition Quality Stroke Does the patient have a stroke diagnosis?: No VTE Prior VTE?: No VTE Risk Level:: Medical - moderate - high VTE Device Contraindication: N/A - Device Ordered VTE Drug Contraindication: Treatment Not Indicated
[2021-11-08 16:29] LABS: Glucose, Whole Blood 205 mg/dL (60-115)
[2021-11-08 16:34] VITALS: BP 123/56; PULSE 82; RESP 18; TEMP 36.6; O2SAT 97
[2021-11-08 19:40] VITALS: BP 127/86; PULSE 67; RESP 18; TEMP 36.6; O2SAT 95
[2021-11-08] MEDS: Atorvastatin Calcium 40 MG TABLET PO (20:26)
[2021-11-08 20:52] LABS: Glucose, Whole Blood 365 mg/dL (60-115)
[2021-11-08 23:05] VITALS: BP 118/69; PULSE 79; RESP 20; TEMP 36.1; O2SAT 96
[2021-11-09 02:55] VITALS: BP 155/77; PULSE 76; RESP 18; TEMP 36.1; O2SAT 96
[2021-11-09 07:57] LABS: Glucose, Whole Blood 295 mg/dL (60-115)
[2021-11-09 08:00] VITALS: BP 139/64; PULSE 71; RESP 17; TEMP 36.4; O2SAT 96
--- NOTE | 2021-11-09 09:06 | P.CDIC_ITS ---
CDI Concurrent Query Documentation Clarification: PHYSICIAN'S DOCUMENTATION REQUEST Date of Query: 11/09/21905 Patient Name: Faizan Shelley Admit Date: 11/06/21 Dear Doctor, A review of the medical record indicates additional documentation may be needed. Please review below and update the documentation accordingly Risk Factors/Clinical Indicators/Treatments Nursing notes for height and weight 8/9 - Obese Class II BMI 36.1 On therapeutic diet. If possible, please provide an associated diagnosis related to the abnormal BMI, such as: For a BMI >= 30: * Overweight * Obesity Or: * BMI is not significant * Other (please specify) * Unable to determine Use of terms such as suspected, likely, concern for, or probable (associated with a specific diagnosis that is being evaluated, monitored, or treated as if it exists) are acceptable and can be coded in the inpatient setting, when documented at the time of discharge. Thank you, Renetta Wilder [facility], CDIS Extension: [phone] Please use your independent medical judgment in providing your response. THIS QUERY IS PART OF THE PERMANENT MEDICAL RECORD Provider Response: Other Other Diagnosis: non-morbid obesity
[2021-11-09] MEDS: Insulin Lispro 100 UNIT/ML 3 ML VIAL SUBCUT ×3 (10:33→21:07)
[2021-11-09] MEDS: Insulin Glargine,Hum.rec.anlog 100 UNIT/ML 10 ML VIAL 20 UNIT SUBCUT (10:33)
[2021-11-09] MEDS: Aspirin 81 MG TAB.CHEW PO (10:34)
[2021-11-09] MEDS: Thiamine HCL 100 MG TABLET PO (10:35)
[2021-11-09] MEDS: Fenofibrate 54 MG TABLET PO (10:35)
[2021-11-09] MEDS: Multivitamin TABLET 1 TAB PO (10:35)
--- NOTE | 2021-11-09 10:38 | MHC.STROKE ---
Addendum entered by Chetna Butler RN 11/11/21 13:42: I MET WITH THE PATIENTS SISTER AND [id number] TODAY, THEY MENTIONED THEY WERE HERE A MONTH AGO AND YASH WAS FINE, THEREFORE THE ONSET OF THIS STROKE CAN BE ESTIMATED TO BE WITHIN THIS PAST MONTH, LKW 10/06/21. I DID PROVIDE STROKE EDUCATION AND DESCRIBED THE LOCATION OF THE STROKE AND CORRESPONDING SYMPTOMS. I ANSWERED THEIR QUESTIONS AND THEN THEY WERE MEETING WITH CASE MANAGEMENT. Original Note: 11/06/21 AT 1746 EMS PRE-NOTIFIED, DEMENTIA, FAILURE TO THRIVE, ARRIVED AT 1755. EXAMINED BY PROVIDER, CT REVEALED SUBACUTE LEFT FRONTAL ISCHEMIC STROKE, AGE UNDETERMINED, ONSET OF STROKE SYMPTOMS UNKNOWN. PASSED SWALLOW SCREEN PRIOR TO ANY PO. SEEN BY DR NAIR-NEUROLOGY FOLLOWING MORNING, NIHSS =2, ESTIMATED DUE TO DECREASED LOC IN ABILITY TO ANSWER QUESTIONS. STROKE EDUCATION WITH PATIENT IS CONTRAINDICATED. ALL STROKE MEASURES MET. LDL IS UNABLE TO BE DONE, TRIGLYCERIDES 640, NEW DIAGNOSIS OF DIABETES A1C 10.6, BEING FOLLOWED BY CASE MANAGEMENT WELL. I WILL CONTINUE TO ANI.
--- NOTE | 2021-11-09 10:39 | P.PNIM_ITS ---
Subjective Subjective Date of Service: 11/09/21 Interval History: No complaints. Knows his name and that he's in the hospital but not why. Sister coming from [place] tomorrow. Review of Systems Review of Systems: Yes all other systems are reviewed and are negative (but limited due to dementia) Physical Exam Vital Signs: Vital Signs: Last Vital Signs Temp 97.6 F 11/09/21 08:00 Pulse 71 11/09/21 08:00 Resp 17 11/09/21 08:00 BP 139/64 11/09/21 08:00 Pulse Ox 96 11/09/21 08:00 O2 Del Method 11/09/21 08:00 BMI result Body Mass Index 36.1 Gen: in no acute distress HEENT: R conjunctival erythema improved, no purulent discharge, moist mucus membranes Neck: supple Lungs: clear to auscultation bilaterally Heart: regular rate and rhythm, no murmurs Abd: soft, non-tender, non-distended, obese Ext: no edema Skin: warm/well-perfused Neuro: oriented to self + place only Psych: impaired insight Objective Data Active Medications Acetaminophen (Acetaminophen 325 Mg Tablet) 650 mg PO Q6H PRN PRN Reason: Pain, Mild (Pain Scale 1-3) Aspirin (Aspirin 81 Mg Tab.Chew) 81 mg PO DAILY [facility] Last Admin: 11/09/21 10:34 Dose: 81 mg Documented By: UMAIR Atorvastatin Calcium (Atorvastatin Calcium 40 Mg Tablet) 40 mg PO BEDTIME [facility] Last Admin: 11/08/21 20:26 Dose: 40 mg Documented By: PERIILErick Dextrose (Dextrose 50 % 25 Gm/50 Ml Syringe) 25 gm IVPUSH Q15M PRN; Protocol PRN Reason: per Hypoglycemia Standing Ord. Enoxaparin Sodium (Enoxaparin Sodium 40 Mg/0.4 Ml Syringe) 40 mg SUBCUT Q24H [facility] Last Admin: 11/08/21 11:13 Dose: 40 mg Documented By: KEVINORRAbraham Erythromycin (Erythromycin Base 0.5% Oph Oin 1 Gm Tube) 1 cm EYE-RIGHT QID [facility] Last Admin: 11/08/21 20:26 Dose: 1 cm Fenofibrate (Fenofibrate 54 Mg Tablet) 54 mg PO DAILY [facility] Last Admin: 11/09/21 10:35 Dose: 54 mg Documented By: UMAIR Glucose (Glucose Gel 15 Gm Gel..Gram.) 15 gm PO Q15M PRN; Protocol PRN Reason: per Hypoglycemia Standing Ord. Insulin Glargine (Insulin Glargine,Hum.Rec.Anlog 100 Unit/Ml 10 Ml Vial) 20 unit SUBCUT DAILY [facility] Last Admin: 11/09/21 10:33 Dose: 20 unit Documented By: UMAIR Insulin Human Lispro (Insulin Lispro 100 Unit/Ml 3 Ml Vial) 0 unit SUBCUT QIDACHS [facility]; Protocol Last Admin: 11/09/21 10:33 Dose: 9 unit Documented By: UMAIR Melatonin (Melatonin 3 Mg Tablet) 6 mg PO BEDTIME PRN PRN Reason: Insomnia Multivitamins/Vitamin C (Multivitamin Tablet) 1 tab PO DAILY [facility] Last Admin: 11/09/21 10:35 Dose: 1 tab Documented By: UMAIR Senna (Sennosides 8.6 Mg Tablet) 17.2 mg PO BEDTIME PRN PRN Reason: Constipation Sodium Chloride (0.9 % Sodium Chloride Flush 3 Ml Syringe) 3 ml IVFLUSH QSHIFT [facility] Last Admin: 11/09/21 10:34 Dose: Not Given Documented By: UMAIR Non-Admin Reason: No Access Thiamine HCl (Thiamine Hcl 100 Mg Tablet) 100 mg PO DAILY [facility] Last Admin: 11/09/21 10:35 Dose: 100 mg Documented By: UMAIR Labs CBC & Chem 7: 11/07/21 04:19 11/08/21 06:27 Labs: Laboratory Results - last 24 hr 11/08/21 11/08/21 11/08/21 10:52 16:26 20:48 POC Glucose 398 H* 205 H 365 H* 11/09/21 07:52 POC Glucose 295 H Assessment and Plan (1) Dementia: Status: Acute (2) Self neglect: Status: Acute Plan hospital d#4 76yo M with dementia, DM2 police went to house for safety check and he was brought in due to self-neglect # dementia with self-neglect, Alzheimer-type # frontal CVA subacute-acute - ASA held due to petechial hemorrhage, continue statin. PT recommends 24-hr care. ON AIR DIRECTOR recommended regular diet/thin liquids. will need long-term care; CM consult; sister coming in # hyperTG - statin, fibrate # conjunctivitis - continue erythromycin ointment # DM2, A1c 10.6, with hyperglycemia - increase lispro sliding scale and increase glargine # obesity - not morbid # VTE ppx - LMWH In my clinical judgment, the patient requires continued hospitalization for the following reasons: safe disposition Quality Stroke Does the patient have a stroke diagnosis?: No VTE Prior VTE?: No VTE Risk Level:: Medical - moderate - high VTE Device Contraindication: N/A - Device Ordered VTE Drug Contraindication: Treatment Not Indicated
[2021-11-09 11:44] VITALS: BP 143/75; PULSE 84; RESP 16; TEMP 36.5; O2SAT 97
[2021-11-09 11:51] LABS: Glucose, Whole Blood 364 mg/dL (60-115)
[2021-11-09] MEDS: Enoxaparin Sodium 40 MG/0.4 ML SYRINGE SUBCUT (12:51)
[2021-11-09] MEDS: Insulin Lispro 100 UNIT/ML 3 ML VIAL 8 UNIT SUBCUT (13:49)
--- NOTE | 2021-11-09 14:02 | MHC.SL.SWA ---
Speech Pathologist Impression: WFL Risk of Aspiration Due to: Poor PO Intake Reduced Cognition Dysphasia Diet Status: No Change Pt's decreased cognitive status is primary risk for aspiration. Liquid Consistency and Strategies for Safe Swallow: Liquid Intake Recommendation: Thin Liquid Intake Strategies: Small Sips Solid Food Consistency: Dietary Recommendations: Regular Additional Modifications to Solid Foods: Pt is tolerating unmodified diet. Further ST intervention no longer indicated at this level of care. Please re-refer if there are any changes or further concern. Oral Medication Intake: Whole with Liquid Please contact the pharmacy regarding appropriate crushable or liquid drug formulations that are available whenever modified delivery is recommended. Compensatory Strategies and Precautions to be Taken for Safe Swallow: Sitting Upright (90 deg) Small Bites and Sips Alternate Liquids/Solids Rate of Ingestion Change Supervision While Eating and Drinking for Safe Swallow: Total Supervision (1:1) d/t decreased cognition Swallowing Recommended Treatments: Compens. Strategy Educat. Recommendation for Speech: D/C Medical Billing And Coding Instructor Clinican/Clinical Fellow: Yes: Estelle Barboza M.A., CF-LABOR AND DELIVERY NURSE Supervisory Statement: I have reviewed and agree with the student/clinical fellow's documentation: Yes Speech Language Pathologist: Marci Georges M.A., CCC-LABOR AND DELIVERY NURSE
[2021-11-09 14:57] VITALS: BP 116/57; PULSE 90; RESP 18; TEMP 36.5; O2SAT 95
--- NOTE | 2021-11-09 15:25 | MHC.CM.PN ---
per rounds pt will need rehab all facilites updated
[2021-11-09 16:16] LABS: Glucose, Whole Blood 243 mg/dL (60-115)
[2021-11-09] MEDS: 0.9 % Sodium Chloride Flush 3 ML SYRINGE IVFLUSH (17:31)
[2021-11-09 19:47] VITALS: BP 160/67; PULSE 92; RESP 18; TEMP 36.4; O2SAT 97
[2021-11-09 20:39] LABS: Glucose, Whole Blood 274 mg/dL (60-115)
[2021-11-09] MEDS: Atorvastatin Calcium 40 MG TABLET PO (21:11)
[2021-11-10] VITALS: BP 130/69; PULSE 74; RESP 18; TEMP 36.8; O2SAT 97
[2021-11-10 07:43] VITALS: BP 137/73; PULSE 81; RESP 17; TEMP 36.4; O2SAT 96
[2021-11-10 07:50] LABS: Glucose, Whole Blood 257 mg/dL (60-115)
[2021-11-10] MEDS: Thiamine HCL 100 MG TABLET PO (08:09)
[2021-11-10] MEDS: Multivitamin TABLET 1 TAB PO (08:09)
[2021-11-10] MEDS: Insulin Glargine,Hum.rec.anlog 100 UNIT/ML 10 ML VIAL 20 UNIT SUBCUT (08:09)
[2021-11-10] MEDS: Fenofibrate 54 MG TABLET PO (08:09)
[2021-11-10] MEDS: Aspirin 81 MG TAB.CHEW PO (08:09)
[2021-11-10] MEDS: Insulin Lispro 100 UNIT/ML 3 ML VIAL SUBCUT ×4 (08:10→20:05)
[2021-11-10 10:59] VITALS: BP 139/73; PULSE 95; RESP 17; TEMP 36.3; O2SAT 96
[2021-11-10 11:11] LABS: Glucose, Whole Blood 337 mg/dL (60-115)
--- NOTE | 2021-11-10 11:24 | MHC.CM.PN ---
Addendum entered by Tamara Florence 11/10/21 15:52: [facility] will be coming to see patient tomorrow 11/10 Addendum entered by Tamara Florence 11/10/21 14:18: Meet w/ Patient's sister @ bedside. She is up from [place] until Wednesday 11/15. She provided copies of pt's POA and HCP (uploaded to [employer]). She also brought pt's hearing aid w/ batteries. She will be taking pt's keys and wallet home. She has appt w/ finicial counselors tomorrow @ 11am. She reports that patient does have funds. Following facilities were updated that patient will be private pay spend down and then [email or web address]. Original Note: Called PCP office for Vaccine information: [employer] 11/03/2020 Pfizer 06/29/2021
--- NOTE | 2021-11-10 11:45 | HO.PM.IMPN ---
Subjective Subjective Date of Service: 11/10/21 Interval History: No complaints. Quite confused. Review of Systems Review of Systems: Yes Unobtainable due to mental status Physical Exam Vital Signs: Vital Signs: Last Vital Signs Temp 97.4 F 11/10/21 10:59 Pulse 95 11/10/21 10:59 Resp 17 11/10/21 10:59 BP 139/73 11/10/21 10:59 Pulse Ox 96 11/10/21 10:59 O2 Del Method 11/10/21 10:59 BMI result Body Mass Index 36.1 Gen: in no acute distress HEENT: R conjunctival erythema without purulent discharge, moist mucus membranes Neck: supple Lungs: clear to auscultation bilaterally Heart: regular rate and rhythm, no murmurs Abd: soft, non-tender, non-distended, obese Ext: no edema Skin: warm/well-perfused Neuro: oriented to self + place only Psych: impaired insight Objective Data Active Medications Acetaminophen (Acetaminophen 325 Mg Tablet) 650 mg PO Q6H PRN PRN Reason: Pain, Mild (Pain Scale 1-3) Aspirin (Aspirin 81 Mg Tab.Chew) 81 mg PO DAILY [facility] Last Admin: 11/10/21 08:09 Dose: 81 mg Documented By: KAYLA Atorvastatin Calcium (Atorvastatin Calcium 40 Mg Tablet) 40 mg PO BEDTIME [facility] Last Admin: 11/09/21 21:11 Dose: 40 mg Documented By: ODALYS Dextrose (Dextrose 50 % 25 Gm/50 Ml Syringe) 25 gm IVPUSH Q15M PRN; Protocol PRN Reason: per Hypoglycemia Standing Ord. Enoxaparin Sodium (Enoxaparin Sodium 40 Mg/0.4 Ml Syringe) 40 mg SUBCUT Q24H [facility] Last Admin: 11/09/21 12:51 Dose: 40 mg Documented By: NATALIO Erythromycin (Erythromycin Base 0.5% Oph Oin 1 Gm Tube) 1 cm EYE-RIGHT QID [facility] Last Admin: 11/10/21 10:34 Dose: Not Given Documented By: KAYLA Non-Admin Reason: Patient Refused Fenofibrate (Fenofibrate 54 Mg Tablet) 54 mg PO DAILY [facility] Last Admin: 11/10/21 08:09 Dose: 54 mg Documented By: KAYLA Glucose (Glucose Gel 15 Gm Gel..Gram.) 15 gm PO Q15M PRN; Protocol PRN Reason: per Hypoglycemia Standing Ord. Insulin Glargine (Insulin Glargine,Hum.Rec.Anlog 100 Unit/Ml 10 Ml Vial) 20 unit SUBCUT DAILY [facility] Last Admin: 11/10/21 08:09 Dose: 20 unit Documented By: KAYLA Insulin Human Lispro (Insulin Lispro 100 Unit/Ml 3 Ml Vial) 0 unit SUBCUT QIDACHS [facility]; Protocol Last Admin: 11/10/21 08:10 Dose: 10 unit Documented By: KAYLA Melatonin (Melatonin 3 Mg Tablet) 6 mg PO BEDTIME PRN PRN Reason: Insomnia Multivitamins/Vitamin C (Multivitamin Tablet) 1 tab PO DAILY [facility] Last Admin: 11/10/21 08:09 Dose: 1 tab Documented By: KAYLA Senna (Sennosides 8.6 Mg Tablet) 17.2 mg PO BEDTIME PRN PRN Reason: Constipation Sodium Chloride (0.9 % Sodium Chloride Flush 3 Ml Syringe) 3 ml IVFLUSH QSHIFT [facility] Last Admin: 11/10/21 08:17 Dose: Not Given Documented By: KAYLA Non-Admin Reason: No Access Thiamine HCl (Thiamine Hcl 100 Mg Tablet) 100 mg PO DAILY [facility] Last Admin: 11/10/21 08:09 Dose: 100 mg Documented By: KAYLA Labs CBC & Chem 7: 11/07/21 04:19 11/08/21 06:27 Labs: Laboratory Results - last 24 hr 11/09/21 11/09/21 11/09/21 11:46 16:08 20:35 POC Glucose 364 H* 243 H 274 H 11/10/21 11/10/21 07:46 11:02 POC Glucose 257 H 337 H Assessment and Plan (1) Dementia: Status: Acute (2) Self neglect: Status: Acute Plan hospital d#5 76yo M with dementia, DM2 police went to house for safety check and he was brought in due to self-neglect # dementia with self-neglect, Alzheimer-type # frontal CVA subacute-acute - ASA held due to petechial hemorrhage, continue statin. PT recommends 24-hr care. CLOTH EXAMINER recommended regular diet/thin liquids. will need long-term care; CM consult; sister coming in today and has HCP/POA # hyperTG - statin, fibrate # conjunctivitis - continue erythromycin ointment # DM2, A1c 10.6, with hyperglycemia - increase lispro sliding scale and increase glargine # obesity - not morbid # VTE ppx - LMWH In my clinical judgment, the patient requires continued hospitalization for the following reasons: safe disposition Quality Stroke Does the patient have a stroke diagnosis?: No VTE Prior VTE?: No VTE Risk Level:: Medical - moderate - high VTE Device Contraindication: N/A - Device Ordered VTE Drug Contraindication: Treatment Not Indicated
[2021-11-10] MEDS: Insulin Glargine,Hum.rec.anlog 100 UNIT/ML 10 ML VIAL SUBCUT (12:58)
[2021-11-10] MEDS: Enoxaparin Sodium 40 MG/0.4 ML SYRINGE SUBCUT (13:03)
[2021-11-10] MEDS: OLANZapine 10 MG VIAL 5 MG IM (14:51)
[2021-11-10 15:45] VITALS: BP 138/71; PULSE 113; RESP 18; TEMP 36.9; O2SAT 94
[2021-11-10 16:08] LABS: Glucose, Whole Blood 253 mg/dL (60-115)
--- NOTE | 2021-11-10 19:58 | PC.NURSE ---
pt with Hx of dementia,confused, wandering fontanez and when being redirected got very loud and aggressive, borderline combative. security was called,nurse floor supervisor made aware, ordered 1 x dose zyprexa IM.
[2021-11-10 20:00] VITALS: BP 133/65; PULSE 108; RESP 17; TEMP 36.8
[2021-11-10] MEDS: Atorvastatin Calcium 40 MG TABLET PO (20:05)
[2021-11-10] MEDS: 0.9 % Sodium Chloride Flush 3 ML SYRINGE IVFLUSH (20:06)
[2021-11-10] MEDS: Erythromycin Base 0.5% Oph Oin 1 GM TUBE 1 CM EYE-RIGHT (20:07)
[2021-11-10 20:09] LABS: Glucose, Whole Blood 246 mg/dL (60-115)
[2021-11-11] VITALS: BP 133/68; PULSE 78; RESP 18; TEMP 35.9; O2SAT 95
[2021-11-11 07:26] VITALS: BP 143/65; PULSE 72; RESP 20; TEMP 36.1; O2SAT 96
[2021-11-11 07:28] LABS: Glucose, Whole Blood 228 mg/dL (60-115)
[2021-11-11] MEDS: Insulin Glargine,Hum.rec.anlog 100 UNIT/ML 10 ML VIAL 28 UNIT SUBCUT (07:57)
[2021-11-11] MEDS: Aspirin 81 MG TAB.CHEW PO (07:57)
[2021-11-11] MEDS: Thiamine HCL 100 MG TABLET PO (07:57)
[2021-11-11] MEDS: Fenofibrate 54 MG TABLET PO (07:57)
[2021-11-11] MEDS: Multivitamin TABLET 1 TAB PO (07:57)
[2021-11-11] MEDS: Insulin Lispro 100 UNIT/ML 3 ML VIAL SUBCUT ×4 (07:58→21:06)
[2021-11-11 11:49] VITALS: BP 120/66; PULSE 72; RESP 16; TEMP 36.8; O2SAT 95
[2021-11-11 11:51] LABS: Glucose, Whole Blood 281 mg/dL (60-115)
--- NOTE | 2021-11-11 11:58 | P.PNIM_ITS ---
Subjective Subjective Date of Service: 11/11/21 Interval History: Behavioral agitation yesterday requiring 1-time dose olanzapine for safety Now calm Disoriented Review of Systems Review of Systems: Yes Unobtainable due to mental status Physical Exam Vital Signs: Vital Signs: Last Vital Signs Temp 98.2 F 11/11/21 11:49 Pulse 72 11/11/21 11:49 Resp 16 11/11/21 11:49 BP 120/66 11/11/21 11:49 Pulse Ox 95 11/11/21 11:49 O2 Del Method 11/11/21 11:49 BMI result Body Mass Index 36.1 Gen: in no acute distress HEENT: R conjunctival erythema without purulent discharge, moist mucus membranes Neck: supple Lungs: clear to auscultation bilaterally Heart: regular rate and rhythm, no murmurs Abd: soft, non-tender, non-distended, obese Ext: no edema Skin: warm/well-perfused Neuro: oriented to self + place only Psych: impaired insight Objective Data Active Medications Acetaminophen (Acetaminophen 325 Mg Tablet) 650 mg PO Q6H PRN PRN Reason: Pain, Mild (Pain Scale 1-3) Aspirin (Aspirin 81 Mg Tab.Chew) 81 mg PO DAILY [facility] Last Admin: 11/11/21 07:57 Dose: 81 mg Documented By: PATEL Atorvastatin Calcium (Atorvastatin Calcium 40 Mg Tablet) 40 mg PO BEDTIME [facility] Last Admin: 11/10/21 20:05 Dose: 40 mg Documented By: MOON Dextrose (Dextrose 50 % 25 Gm/50 Ml Syringe) 25 gm IVPUSH Q15M PRN; Protocol PRN Reason: per Hypoglycemia Standing Ord. Enoxaparin Sodium (Enoxaparin Sodium 40 Mg/0.4 Ml Syringe) 40 mg SUBCUT Q24H [facility] Last Admin: 11/10/21 13:03 Dose: 40 mg Documented By: KAYLA Erythromycin (Erythromycin Base 0.5% Oph Oin 1 Gm Tube) 1 cm EYE-RIGHT QID [facility] Last Admin: 11/11/21 07:58 Dose: Not Given Documented By: PATEL Non-Admin Reason: Patient Refused Fenofibrate (Fenofibrate 54 Mg Tablet) 54 mg PO DAILY [facility] Last Admin: 11/11/21 07:57 Dose: 54 mg Documented By: PATEL Glucose (Glucose Gel 15 Gm Gel..Gram.) 15 gm PO Q15M PRN; Protocol PRN Reason: per Hypoglycemia Standing Ord. Insulin Glargine (Insulin Glargine,Hum.Rec.Anlog 100 Unit/Ml 10 Ml Vial) 28 unit SUBCUT DAILY [facility] Last Admin: 11/11/21 07:57 Dose: 28 unit Documented By: PATEL Insulin Human Lispro (Insulin Lispro 100 Unit/Ml 3 Ml Vial) 0 unit SUBCUT QIDACHS [facility]; Protocol Last Admin: 11/11/21 07:58 Dose: 9 unit Documented By: PATEL Melatonin (Melatonin 3 Mg Tablet) 6 mg PO BEDTIME PRN PRN Reason: Insomnia Multivitamins/Vitamin C (Multivitamin Tablet) 1 tab PO DAILY [facility] Last Admin: 11/11/21 07:57 Dose: 1 tab Documented By: PATEL Senna (Sennosides 8.6 Mg Tablet) 17.2 mg PO BEDTIME PRN PRN Reason: Constipation Sodium Chloride (0.9 % Sodium Chloride Flush 3 Ml Syringe) 3 ml IVFLUSH QSHIFT [facility] Last Admin: 11/11/21 07:58 Dose: Not Given Documented By: PATEL Non-Admin Reason: No Access Thiamine HCl (Thiamine Hcl 100 Mg Tablet) 100 mg PO DAILY [facility] Last Admin: 11/11/21 07:57 Dose: 100 mg Documented By: PATEL Labs CBC & Chem 7: 11/07/21 04:19 11/08/21 06:27 Labs: Laboratory Results - last 24 hr 11/10/21 11/10/21 11/11/21 15:48 19:56 07:23 POC Glucose 253 H 246 H 228 H 11/11/21 11:43 POC Glucose 281 H Assessment and Plan (1) Dementia: Status: Acute (2) Self neglect: Status: Acute Plan hospital d#6 76yo M with dementia, DM2 police went to house for safety check and he was brought in due to self-neglect # dementia with self-neglect, Alzheimer-type # frontal CVA subacute-acute - ASA held due to petechial hemorrhage, continue statin. PT recommends 24-hr care. CARDIO TECH recommended regular diet/thin liquids. will need long-term care and seeking placement; authorized by sister who is HCP # hyperTG - statin, fibrate # conjunctivitis - continue erythromycin ointment # DM2, A1c 10.6, with hyperglycemia - increase glargine, continue lispro correction-dose # obesity - not morbid # VTE ppx - LMWH In my clinical judgment, the patient requires continued hospitalization for the following reasons: safe disposition Quality Stroke Does the patient have a stroke diagnosis?: No VTE Prior VTE?: No VTE Risk Level:: Medical - moderate - high VTE Device Contraindication: N/A - Device Ordered VTE Drug Contraindication: Treatment Not Indicated
[2021-11-11] MEDS: Enoxaparin Sodium 40 MG/0.4 ML SYRINGE SUBCUT (12:04)
--- NOTE | 2021-11-11 14:09 | MHC.CM.PN ---
[facility] in to visit patient. They are offering a bed if family can pay up-front $12,000. Family would like to try a few other facilities. [facility] offering a bed Sunday. TIMO left with Tory, awaiting return phone call.
[2021-11-11 14:26] LABS: Vitamin B6 4.5 ng/mL (2.1-21.7)
[2021-11-11 15:24] VITALS: BP 127/55; PULSE 68; RESP 18; TEMP 37.1; O2SAT 95
[2021-11-11 15:42] LABS: Glucose, Whole Blood 229 mg/dL (60-115)
[2021-11-11 20:00] VITALS: BP 144/67; PULSE 80; RESP 18; TEMP 36.5; O2SAT 95
[2021-11-11 20:49] LABS: Glucose, Whole Blood 261 mg/dL (60-115)
[2021-11-11] MEDS: Atorvastatin Calcium 40 MG TABLET PO (21:06)
[2021-11-11] MEDS: Erythromycin Base 0.5% Oph Oin 1 GM TUBE 1 CM EYE-RIGHT (21:06)
[2021-11-12] VITALS (7 sets, daily range): BP systolic 124–168; BP diastolic 60–97; PULSE 63–97; RESP 18; TEMP 36.1–37.1; O2SAT 95–99
[2021-11-12 07:46] LABS: Glucose, Whole Blood 239 mg/dL (60-115)
[2021-11-12] MEDS: Insulin Lispro 100 UNIT/ML 3 ML VIAL SUBCUT ×4 (09:01→20:40)
[2021-11-12] MEDS: Thiamine HCL 100 MG TABLET PO (09:02)
[2021-11-12] MEDS: Fenofibrate 54 MG TABLET PO (09:02)
[2021-11-12] MEDS: Insulin Glargine,Hum.rec.anlog 100 UNIT/ML 10 ML VIAL 32 UNIT SUBCUT (09:02)
[2021-11-12] MEDS: Multivitamin TABLET 1 TAB PO (09:02)
[2021-11-12] MEDS: Erythromycin Base 0.5% Oph Oin 1 GM TUBE 1 CM EYE-RIGHT ×4 (09:03→20:40)
[2021-11-12 11:34] LABS: Glucose, Whole Blood 281 mg/dL (60-115)
--- NOTE | 2021-11-12 12:18 | P.PNIM_ITS ---
Subjective Subjective Date of Service: 11/12/21 Interval History: no behavioral agiation awaiting placement in LTC Review of Systems Review of Systems: Yes Unobtainable due to mental status Physical Exam Vital Signs: Vital Signs: Last Vital Signs Temp 97 F 11/12/21 11:36 Pulse 74 11/12/21 11:36 Resp 18 11/12/21 11:36 BP 151/67 H 11/12/21 11:36 Pulse Ox 99 11/12/21 11:36 O2 Del Method 11/12/21 11:36 BMI result Body Mass Index 36.1 Gen: in no acute d istress HEENT: scl era anicteric, george st MM Neck: supple Lungs: clear to a uscultation bilate rally Heart: regul ar rate and rhythm , no murmurs Abd: soft, non-tender, non-distended, obe se Ext: no edema S kin: warm/well-per fused Neuro: disor iented Psych: impa ired insight Objective Data Active Medications Acetaminophen (Acetaminophen 325 Mg Tablet) 650 mg PO Q6H PRN PRN Reason: Pain, Mild (Pain Scale 1-3) Atorvastatin Calcium (Atorvastatin Calcium 40 Mg Tablet) 40 mg PO BEDTIME [facility] Last Admin: 11/11/21 21:06 Dose: 40 mg Documented By: ZENAIDA Dextrose (Dextrose 50 % 25 Gm/50 Ml Syringe) 25 gm IVPUSH Q15M PRN; Protocol PRN Reason: per Hypoglycemia Standing Ord. Enoxaparin Sodium (Enoxaparin Sodium 40 Mg/0.4 Ml Syringe) 40 mg SUBCUT Q24H [facility] Last Admin: 11/11/21 12:04 Dose: 40 mg Documented By: PATEL Erythromycin (Erythromycin Base 0.5% Oph Oin 1 Gm Tube) 1 cm EYE-RIGHT QID [facility] Last Admin: 11/12/21 09:03 Dose: 1 cm Documented By: UMAIR Fenofibrate (Fenofibrate 54 Mg Tablet) 54 mg PO DAILY [facility] Last Admin: 11/12/21 09:02 Dose: 54 mg Documented By: UMAIR Glucose (Glucose Gel 15 Gm Gel..Gram.) 15 gm PO Q15M PRN; Protocol PRN Reason: per Hypoglycemia Standing Ord. Insulin Glargine (Insulin Glargine,Hum.Rec.Anlog 100 Unit/Ml 10 Ml Vial) 32 unit SUBCUT DAILY [facility] Last Admin: 11/12/21 09:02 Dose: 32 unit Documented By: UMAIR Insulin Human Lispro (Insulin Lispro 100 Unit/Ml 3 Ml Vial) 0 unit SUBCUT QIDACHS [facility]; Protocol Last Admin: 11/12/21 09:01 Dose: 9 unit Documented By: UMAIR Melatonin (Melatonin 3 Mg Tablet) 6 mg PO BEDTIME PRN PRN Reason: Insomnia Multivitamins/Vitamin C (Multivitamin Tablet) 1 tab PO DAILY [facility] Last Admin: 11/12/21 09:02 Dose: 1 tab Documented By: UMAIR Senna (Sennosides 8.6 Mg Tablet) 17.2 mg PO BEDTIME PRN PRN Reason: Constipation Sodium Chloride (0.9 % Sodium Chloride Flush 3 Ml Syringe) 3 ml IVFLUSH QSHIFT [facility] Last Admin: 11/12/21 08:46 Dose: Not Given Documented By: UMAIR Non-Admin Reason: No Access Thiamine HCl (Thiamine Hcl 100 Mg Tablet) 100 mg PO DAILY [facility] Last Admin: 11/12/21 09:02 Dose: 100 mg Documented By: UMAIR Labs CBC & Chem 7: 11/07/21 04:19 11/08/21 06:27 Labs: Laboratory Results - last 24 hr 11/07/21 11/11/21 11/11/21 13:11 15:21 20:42 POC Glucose 229 H 261 H Vitamin B6 4.5 11/12/21 11/12/21 07:35 11:21 POC Glucose 239 H 281 H Vitamin B6 Assessment and Plan (1) Dementia: Status: Acute (2) Self neglect: Status: Acute Plan hospital d#7 76yo M with dementia, DM2 police went to house for safety check and he was brought in due to self-neglect # dementia with self-neglect, Alzheimer-type # frontal CVA subacute-acute - ASA held due to petechial hemorrhage, continue statin. PT recommends 24-hr care. LACE MENDER recommended regular diet/thin liquids. will need long-term care and seeking placement; authorized by sister who is HCP # hyperTG - statin, fibrate # conjunctivitis - continue erythromycin ointment # DM2, A1c 10.6, with hyperglycemia - increase glargine further,continue lispro correction-dose # obesity - not morbid # VTE ppx - LMWH In my clinical judgment, the patient requires continued hospitalization for the following reasons: safe disposition Quality Stroke Does the patient have a stroke diagnosis?: No VTE Prior VTE?: No VTE Risk Level:: Medical - moderate - high VTE Device Contraindication: N/A - Device Ordered VTE Drug Contraindication: Treatment Not Indicated
[2021-11-12] MEDS: Enoxaparin Sodium 40 MG/0.4 ML SYRINGE SUBCUT (14:09)
[2021-11-12 16:24] LABS: Glucose, Whole Blood 196 mg/dL (60-115)
[2021-11-12 20:20] LABS: Glucose, Whole Blood 226 mg/dL (60-115)
[2021-11-12] MEDS: Atorvastatin Calcium 40 MG TABLET PO (20:40)
[2021-11-12 23:42] LABS: Glucose, Whole Blood 129 mg/dL (60-115)
[2021-11-13 03:05] VITALS: BP 185/84; PULSE 73; RESP 18; TEMP 37.2; O2SAT 96
[2021-11-13 08:00] VITALS: BP 164/75; PULSE 78; RESP 20; O2SAT 98
[2021-11-13 09:44] LABS: Glucose, Whole Blood 190 mg/dL (60-115)
[2021-11-13] MEDS: Insulin Lispro 100 UNIT/ML 3 ML VIAL SUBCUT ×4 (09:52→20:25)
[2021-11-13] MEDS: Insulin Glargine,Hum.rec.anlog 100 UNIT/ML 10 ML VIAL 32 UNIT SUBCUT (09:52)
[2021-11-13] MEDS: Thiamine HCL 100 MG TABLET PO (09:53)
[2021-11-13] MEDS: Multivitamin TABLET 1 TAB PO (09:53)
[2021-11-13] MEDS: Fenofibrate 54 MG TABLET PO (09:53)
[2021-11-13] MEDS: Erythromycin Base 0.5% Oph Oin 1 GM TUBE 1 CM EYE-RIGHT ×3 (09:59→20:25)
--- NOTE | 2021-11-13 11:15 | P.PNIM_ITS ---
Subjective Subjective Date of Service: 11/13/21 Interval History: no complaints Review of Systems Review of Systems: Yes Unobtainable due to mental status Physical Exam Vital Signs: Vital Signs: Last Vital Signs Temp 99.0 F 11/13/21 03:05 Pulse 78 11/13/21 08:00 Resp 20 11/13/21 08:00 BP 164/75 H 11/13/21 08:00 Pulse Ox 98 11/13/21 08:00 O2 Del Method 11/13/21 08:00 BMI result Body Mass Index 36.1 Gen: in no acute distress HEENT: sclera anicteric, moist mucus membranes Neck: supple Lungs: clear to auscultation bilaterally Heart: regular rate and rhythm, no murmurs Abd: soft, non-tender, non-distended, obese Ext: no edema Skin: warm/well-perfused Neuro: oriented to self + place only Psych: impaired insight Objective Data Active Medications Acetaminophen (Acetaminophen 325 Mg Tablet) 650 mg PO Q6H PRN PRN Reason: Pain, Mild (Pain Scale 1-3) Atorvastatin Calcium (Atorvastatin Calcium 40 Mg Tablet) 40 mg PO BEDTIME [facility] Last Admin: 11/12/21 20:40 Dose: 40 mg Documented By: ANA M Dextrose (Dextrose 50 % 25 Gm/50 Ml Syringe) 25 gm IVPUSH Q15M PRN; Protocol PRN Reason: per Hypoglycemia Standing Ord. Enoxaparin Sodium (Enoxaparin Sodium 40 Mg/0.4 Ml Syringe) 40 mg SUBCUT Q24H [facility] Last Admin: 11/12/21 14:09 Dose: 40 mg Documented By: UMAIR Erythromycin (Erythromycin Base 0.5% Oph Oin 1 Gm Tube) 1 cm EYE-RIGHT QID [facility] Last Admin: 11/13/21 09:59 Dose: 1 cm Documented By: ROBBIE Fenofibrate (Fenofibrate 54 Mg Tablet) 54 mg PO DAILY [facility] Last Admin: 11/13/21 09:53 Dose: 54 mg Documented By: ROBBIE Glucose (Glucose Gel 15 Gm Gel..Gram.) 15 gm PO Q15M PRN; Protocol PRN Reason: per Hypoglycemia Standing Ord. Insulin Glargine (Insulin Glargine,Hum.Rec.Anlog 100 Unit/Ml 10 Ml Vial) 32 unit SUBCUT DAILY [facility] Last Admin: 11/13/21 09:52 Dose: 32 unit Documented By: ROBBIE Insulin Human Lispro (Insulin Lispro 100 Unit/Ml 3 Ml Vial) 0 unit SUBCUT QIDACHS [facility]; Protocol Last Admin: 11/13/21 09:52 Dose: 6 unit Documented By: ROBBIE Melatonin (Melatonin 3 Mg Tablet) 6 mg PO BEDTIME PRN PRN Reason: Insomnia Multivitamins/Vitamin C (Multivitamin Tablet) 1 tab PO DAILY [facility] Last Admin: 11/13/21 09:53 Dose: 1 tab Documented By: ROBBIE Senna (Sennosides 8.6 Mg Tablet) 17.2 mg PO BEDTIME PRN PRN Reason: Constipation Sodium Chloride (0.9 % Sodium Chloride Flush 3 Ml Syringe) 3 ml IVFLUSH QSHIFT [facility] Last Admin: 11/13/21 09:59 Dose: Not Given Documented By: ROBBIE Non-Admin Reason: No Access Thiamine HCl (Thiamine Hcl 100 Mg Tablet) 100 mg PO DAILY [facility] Last Admin: 11/13/21 09:53 Dose: 100 mg Documented By: ROBBIE Labs CBC & Chem 7: 11/07/21 04:19 11/08/21 06:27 Labs: Laboratory Results - last 24 hr 11/12/21 11/12/21 11/12/21 11:21 16:19 19:36 POC Glucose 281 H 196 H 226 H 11/12/21 11/13/21 23:35 09:37 POC Glucose 129 H 190 H Assessment and Plan (1) Dementia: Status: Acute (2) Self neglect: Status: Acute Plan hospital d#8 76yo M with dementia, DM2 police went to house for safety check and he was brought in due to self-neglect # dementia with self-neglect, Alzheimer-type # frontal CVA subacute-acute - ASA held due to petechial hemorrhage, continue statin. PT recommends 24-hr care. RESEARCH ENVIRONMENTAL SCIENTIST recommended regular diet/thin liquids. will need long-term care and seeking placement; authorized by sister who is HCP # hyperTG - statin, fibrate # conjunctivitis - erythromycin ointment # DM2, A1c 10.6, with hyperglycemia - basal/bolus insulin # obesity - not morbid # VTE ppx - LMWH In my clinical judgment, the patient requires continued hospitalization for the following reasons: safe disposition Quality Stroke Does the patient have a stroke diagnosis?: No VTE Prior VTE?: No VTE Risk Level:: Medical - moderate - high VTE Device Contraindication: N/A - Device Ordered VTE Drug Contraindication: Treatment Not Indicated
[2021-11-13 12:00] VITALS: BP 141/68; PULSE 78; RESP 20; O2SAT 95
[2021-11-13] MEDS: Enoxaparin Sodium 40 MG/0.4 ML SYRINGE SUBCUT (12:15)
[2021-11-13 13:47] LABS: Glucose, Whole Blood 276 mg/dL (60-115)
[2021-11-13 16:00] VITALS: BP 147/89; PULSE 102; RESP 18; TEMP 36.6; O2SAT 98
[2021-11-13 16:23] LABS: Glucose, Whole Blood 195 mg/dL (60-115)
[2021-11-13 19:06] VITALS: BP 148/74; PULSE 74; RESP 18; TEMP 37.2; O2SAT 97
[2021-11-13 20:14] LABS: Glucose, Whole Blood 246 mg/dL (60-115)
[2021-11-13] MEDS: Atorvastatin Calcium 40 MG TABLET PO (20:25)
[2021-11-13] MEDS: 0.9 % Sodium Chloride Flush 3 ML SYRINGE IVFLUSH (20:28)
[2021-11-13 23:15] VITALS: BP 121/59; PULSE 66; RESP 18; TEMP 36.4; O2SAT 96
[2021-11-14 03:11] VITALS: BP 118/60; PULSE 70; RESP 18; TEMP 36.7; O2SAT 96
[2021-11-14 07:40] LABS: Glucose, Whole Blood 190 mg/dL (60-115)
[2021-11-14 07:55] VITALS: BP 157/74; PULSE 76; RESP 17; TEMP 36.4; O2SAT 95
[2021-11-14] MEDS: Insulin Glargine,Hum.rec.anlog 100 UNIT/ML 10 ML VIAL 32 UNIT SUBCUT (08:50)
[2021-11-14] MEDS: Erythromycin Base 0.5% Oph Oin 1 GM TUBE 1 CM EYE-RIGHT ×4 (08:50→20:15)
[2021-11-14] MEDS: Multivitamin TABLET 1 TAB PO (08:50)
[2021-11-14] MEDS: Thiamine HCL 100 MG TABLET PO (08:50)
[2021-11-14] MEDS: Fenofibrate 54 MG TABLET PO (08:50)
[2021-11-14] MEDS: Insulin Lispro 100 UNIT/ML 3 ML VIAL SUBCUT ×4 (08:53→20:13)
[2021-11-14 11:11] VITALS: BP 133/68; PULSE 67; RESP 17; TEMP 36.2; O2SAT 97
[2021-11-14 11:28] LABS: Glucose, Whole Blood 275 mg/dL (60-115)
[2021-11-14] MEDS: Enoxaparin Sodium 40 MG/0.4 ML SYRINGE SUBCUT (14:21)
--- NOTE | 2021-11-14 14:42 | HO.PM.IMPN ---
Subjective Subjective Date of Service: 11/14/21 Interval History: no acute issues overnight. Remains confused Review of Systems unable to obtain secondary to dementia Physical Exam Vital Signs: Vital Signs: Last Vital Signs Temp 97.2 F 11/14/21 11:11 Pulse 67 11/14/21 11:11 Resp 17 11/14/21 11:11 BP 133/68 11/14/21 11:11 Pulse Ox 97 11/14/21 11:11 O2 Del Method 11/14/21 11:11 BMI result Body Mass Index 36.1 Const: Other: no acute distress Resp: Other: clear to auscultation bilaterally no rales rhonchi or wheezes Cardio: Other: no S4; positive S1-S2; no S3 murmurs rubs or gallops GI: Other: soft nontender nondistended normoactive bowel sounds Extrem: Other: no edema bilaterally Objective Data Active Medications Acetaminophen (Acetaminophen 325 Mg Tablet) 650 mg PO Q6H PRN PRN Reason: Pain, Mild (Pain Scale 1-3) Atorvastatin Calcium (Atorvastatin Calcium 40 Mg Tablet) 40 mg PO BEDTIME [facility] Last Admin: 11/13/21 20:25 Dose: 40 mg Documented By: ANDREW Dextrose (Dextrose 50 % 25 Gm/50 Ml Syringe) 25 gm IVPUSH Q15M PRN; Protocol PRN Reason: per Hypoglycemia Standing Ord. Enoxaparin Sodium (Enoxaparin Sodium 40 Mg/0.4 Ml Syringe) 40 mg SUBCUT Q24H [facility] Last Admin: 11/14/21 14:21 Dose: 40 mg Documented By: BRINDA Erythromycin (Erythromycin Base 0.5% Oph Oin 1 Gm Tube) 1 cm EYE-RIGHT QID [facility] Last Admin: 11/14/21 14:22 Dose: 1 cm Documented By: BRINDA Fenofibrate (Fenofibrate 54 Mg Tablet) 54 mg PO DAILY [facility] Last Admin: 11/14/21 08:50 Dose: 54 mg Documented By: BRINDA Glucose (Glucose Gel 15 Gm Gel..Gram.) 15 gm PO Q15M PRN; Protocol PRN Reason: per Hypoglycemia Standing Ord. Insulin Glargine (Insulin Glargine,Hum.Rec.Anlog 100 Unit/Ml 10 Ml Vial) 32 unit SUBCUT DAILY [facility] Last Admin: 11/14/21 08:50 Dose: 32 unit Documented By: BRINDA Insulin Human Lispro (Insulin Lispro 100 Unit/Ml 3 Ml Vial) 0 unit SUBCUT QIDACHS [facility]; Protocol Last Admin: 11/14/21 11:50 Dose: 12 unit Documented By: BRINDA Melatonin (Melatonin 3 Mg Tablet) 6 mg PO BEDTIME PRN PRN Reason: Insomnia Multivitamins/Vitamin C (Multivitamin Tablet) 1 tab PO DAILY [facility] Last Admin: 11/14/21 08:50 Dose: 1 tab Documented By: BRINDA Senna (Sennosides 8.6 Mg Tablet) 17.2 mg PO BEDTIME PRN PRN Reason: Constipation Sodium Chloride (0.9 % Sodium Chloride Flush 3 Ml Syringe) 3 ml IVFLUSH QSHIFT [facility] Last Admin: 11/14/21 08:53 Dose: Not Given Documented By: BRINDA Non-Admin Reason: No Access Thiamine HCl (Thiamine Hcl 100 Mg Tablet) 100 mg PO DAILY [facility] Last Admin: 11/14/21 08:50 Dose: 100 mg Documented By: BRINDA Labs CBC & Chem 7: 11/07/21 04:19 11/08/21 06:27 Labs: Laboratory Results - last 24 hr 11/13/21 11/13/21 11/14/21 16:19 20:04 07:31 POC Glucose 195 H 246 H 190 H 11/14/21 11:10 POC Glucose 275 H Assessment and Plan (1) Alzheimer's dementia: Status: Acute (2) Diabetes: Status: Acute Plan 76yo M with dementia, DM2 police went to house for safety check and he was brought in due to self-neglect 1.Dementia with self-neglect, Alzheimer-type(frontal CVA subacute-acute) - ASA held due to petechial hemorrhage, continue statin.? PT recommends 24-hr care.? [employer] PAVER recommended regular diet/thin liquids. ? - -will need long-term care; CM consult; sister coming in 2.Elevated triglycerides - statin, fibrate 3.DM2 - poorly control - increase lispro sliding scale and start glargine for basal isulin requirement - adjust as indicated will require ongoing hospitalization for safety issues until more secure situation can be established Quality Stroke Does the patient have a stroke diagnosis?: No VTE Prior VTE?: No VTE Risk Level:: Medical - moderate - high VTE Device Contraindication: N/A - Device Ordered VTE Drug Contraindication: Treatment Not Indicated
--- NOTE | 2021-11-14 15:16 | MHC.CM.PN ---
per rounds pt is dc ready family meeting with honey lawson in finacial pt has been accepted at [facility] other rehab choice has no beds
[2021-11-14 15:22] LABS: Glucose, Whole Blood 194 mg/dL (60-115)
[2021-11-14 15:28] VITALS: BP 124/66; PULSE 73; RESP 18; TEMP 36.6; O2SAT 96
[2021-11-14 19:57] VITALS: BP 167/77; PULSE 91; RESP 18; TEMP 36.8; O2SAT 97
[2021-11-14 20:10] LABS: Glucose, Whole Blood 313 mg/dL (60-115)
[2021-11-14] MEDS: Atorvastatin Calcium 40 MG TABLET PO (20:11)
[2021-11-14 23:20] VITALS: BP 125/58; PULSE 84; RESP 18; TEMP 36.7; O2SAT 96
[2021-11-15 03:28] VITALS: BP 141/66; PULSE 78; RESP 18; TEMP 36.7; O2SAT 98
[2021-11-15 07:29] VITALS: BP 130/68; PULSE 67; RESP 16; TEMP 36.5; O2SAT 96
[2021-11-15 08:38] LABS: Glucose, Whole Blood 222 mg/dL (60-115)
[2021-11-15 10:45] VITALS: BP 159/70; PULSE 70; RESP 17; TEMP 36.7; O2SAT 97
[2021-11-15] MEDS: Thiamine HCL 100 MG TABLET PO (11:03)
[2021-11-15] MEDS: Multivitamin TABLET 1 TAB PO (11:03)
[2021-11-15] MEDS: Fenofibrate 54 MG TABLET PO (11:03)
[2021-11-15] MEDS: Insulin Glargine,Hum.rec.anlog 100 UNIT/ML 10 ML VIAL 32 UNIT SUBCUT (11:03)
[2021-11-15] MEDS: Insulin Lispro 100 UNIT/ML 3 ML VIAL SUBCUT ×2 (11:04→11:49)
[2021-11-15] MEDS: Erythromycin Base 0.5% Oph Oin 1 GM TUBE 1 CM EYE-RIGHT (11:04)
[2021-11-15 11:23] LABS: Glucose, Whole Blood 271 mg/dL (60-115)
[2021-11-15] MEDS: Enoxaparin Sodium 40 MG/0.4 ML SYRINGE SUBCUT (12:07)
--- NOTE | 2021-11-15 12:45 | MHC.CM.PN ---
PT TO BE DCD TODAY AT 3:30 TO [facility]
--- NOTE | 2021-11-15 12:56 | PM.DS ---
DS: Providers Provider Date of Service: 11/15/21 Date of admission: 11/06/21 21:58 Date of discharge: 11/15/21 Primary care physician: Unknown Physician Consults: 11/06/21 22:00 Consult to Neurology Routine Consulting Provider: Karrie Bustillo Reason for consultation: CVA DS: Diagnosis Discharge Diagnosis (1) Alzheimer's dementia: Status: Acute (2) Diabetes: Status: Acute DS: Summary Hospital Course Hospital Course: 76-year-old male presents to the ER after a well check where he was found to be distress of old confused; house was not well maintained and there was signs of self neglect. He was brought to the ER where a CT scan showed an acute frontal CVA. he was seen in consultation by Neurology who ordered MRI; name MRI demonstrated subacute appearing infarct within the left frontal lobe with cortical petechial hemorrhage without large volume hemorrhagic transformation. Also noted was global cerebral volume loss with severe temporal lobe predominance that was highly suggested for Alzheimer's type dementia. He was admitted, found to be hyperglycemic and was started on insulin. He is ambulatory but confused; he is medically acceptable to transfer to SNF Time Spent with Patient Time attestation: Total time spent providing and/or coordinating discharge services: Discharge coordination time: Greater than 30 minutes Quality: Safe Use of Opioids Does Pt have an Active Cancer Diagnosis on the Problem List?: No Quality: Stroke Does the patient have a stroke diagnosis?: Yes Reason for No Anti-thrombotic at DC: Contraindicated Reason for No Anticoagulant at DC: Contraindicated Reason Not Initiating IV-Tpa: Not indicated Reason for No Anti-thrombotic by Day Two: Not indicated Reason for No Statin at DC: N/A - Med Ordered Physical Exam Vital Signs: Vital Signs: Last Vital Signs Temp 98.0 F 11/15/21 10:45 Pulse 70 11/15/21 10:45 Resp 17 11/15/21 10:45 BP 159/70 H 11/15/21 10:45 Pulse Ox 97 11/15/21 10:45 O2 Del Method 11/15/21 10:45 BMI result Body Mass Index 36.1 Const: Other: no acute distress Resp: Other: clear to auscultation bilaterally no rales rhonchi or wheezes Cardio: Other: no S4; positive S1-S2; no S3 murmurs rubs or gallops GI: Other: soft nontender nondistended normoactive bowel sounds Extrem: Other: no edema bilaterally DS: Data Data Completed and Pending Labs on day of discharge: Laboratory Results - last 24 hr 11/14/21 11/14/21 11/15/21 15:12 20:06 07:31 POC Glucose 194 H 313 H 222 H 11/15/21 10:48 POC Glucose 271 H Discharge Plan Discharge Patient Disposition: Xfer SNF Discharge Diagnosis: Alzheimer's dementia Referrals: RENEE WELCH [Other] - 1 Week Physician,Unknown J [Primary Care Provider] - 1 Week Discharge Medications: New atorvastatin 40 mg Tablet 40 mg PO BEDTIME Qty: 30 0RF acetaminophen 325 mg Tablet 650 mg PO Q6H PRN (Reason: Pain, Mild (Pain Scale 1-3)) Qty: 60 0RF insulin glargine [Lantus U-100 Insulin] 100 unit/mL Solution 32 unit subcut DAILY Qty: 10 0RF fenofibrate 54 mg Tablet 54 mg PO DAILY Qty: 30 0RF insulin lispro [Humalog U-100 Insulin] 100 unit/mL Solution See Protocol subcut QIDACHS Qty: 10 0RF Protocol: Insulin Correction Scale Less than or equal to 110 ---- Give (units): 0 111 to 150 Give (units): 3 151 to 200 Give (units): 6 201 to 250 Give (units): 9 251 to 300 Give (units): 12 301 to 350 Give (units): 15 Greater than 350 Give (units): 18 Call MD if Blood Glucose > : 350 multivitamin [Daily-Zafar] Tablet 1 tab PO DAILY Qty: 30 0RF thiamine mononitrate (vit B1) 100 mg Tablet 100 mg PO DAILY Qty: 30 0RF Discharge Orders: Discharge Order (Routine); Ordered 11/15/21 Ordered By: Mariano Harvey Diet: Advance to usual diet Activity on Discharge: As tolerated Stand Alone Forms: Patient Portal Discharge page Care Plan Goals: continue medications as ordered Health Concerns: maintain safe environment Plan of Treatment: further plans based on received facility Assessment: see disc
[2021-11-15 13:59] LABS: COVID-19 Test Negative (Negative); IDNOW Serial# 9DB6401D
== END 2021-11-15 16:05 | disposition skilled nursing facility (03) | DRG 66 ==
LOC: HO.ED 21:57 → HO.EDOVER 22:04 → HO.IMC 11-07 17:49
PROVIDERS: Family Medicine; Admitting Provider Hospitalist; Emergency Provider Student in an Organized Health Care Education/Training Program; Visit Provider Hospitalist
DX: I63.9 Cerebral infarction, unspecified (principal); G30.9 Alzheimer's disease, unspecified; F02.80 Dementia in other diseases classified elsewhere, unspecified severity, without behavioral disturbance, psychotic disturbance, mood disturbance, and anxiety; E11.65 Type 2 diabetes mellitus with hyperglycemia; R91.1 Solitary pulmonary nodule; R23.3 Spontaneous ecchymoses; R29.702 NIHSS score 2; H10.9 Unspecified conjunctivitis; E66.9 Obesity, unspecified; E78.1 Pure hyperglyceridemia; Z20.822 Contact with and (suspected) exposure to COVID-19; Z68.36 Body mass index [BMI] 36.0-36.9, adult; Z79.4 Long term (current) use of insulin; Z79.899 Other long term (current) drug therapy
CPT/HCPCS: 36415; 70450; 70551; 71045; 71250; 74018; 80048; 80053; 80061; 82077; 82607; 82746; 82947; 83036; 83690; 83735; 83880; 84207; 84439; 84443; 84484; 85025; 85610; 87635; 92526; 92610; 93005; 93306; 97163; 97167; 97535; 99285; J1650; Q9957

== ENCOUNTER 2022-05-07 17:26 | Emergency (ER) | payer MEDICARE, OTHER, SELFPAY ==
--- NOTE | ~2022-05-07 | CT_ITS ---
Indication: Fall EXAMINATION: CT brain, CT cervical spine. Axial imaging with coronal and sagittal reformatted images. This CT examination was performed using dose optimization techniques as appropriate, variously including the following: *Automated exposure control *Adjustment of mA and/or kV according to patient size (this includes techniques or standardized protocols for targeted exams where dose is matched to indication/reason for exam; i.e. extremities or head) *Use of iterative reconstruction technique. Radiation dose [address] brain; Comparison previous dated 11/06/2021. There is no midline shift. There is no mass effect. There is no hemorrhage. The basal cisterns appear patent. The posterior fossa is grossly within normal limits. There is no extra-axial collection. Once again atrophy and white matter ischemic changes. Left parietal infarct appears old but new from 2021. No evidence for fracture on the bone windows. CT cervical spine; Negative for acute fracture or dislocation. Degenerative changes are noted. CT/CT head/brain wo IV con IMPRESSION: Negative acute noncontrast CT of the brain. No acute fracture or dislocation in the cervical spine. Degenerative changes are noted.
--- NOTE | ~2022-05-07 | CT_ITS ---
Indication: Fall EXAMINATION: CT brain, CT cervical spine. Axial imaging with coronal and sagittal reformatted images. This CT examination was performed using dose optimization techniques as appropriate, variously including the following: *Automated exposure control *Adjustment of mA and/or kV according to patient size (this includes techniques or standardized protocols for targeted exams where dose is matched to indication/reason for exam; i.e. extremities or head) *Use of iterative reconstruction technique. Radiation dose [address] brain; Comparison previous dated 11/06/2021. There is no midline shift. There is no mass effect. There is no hemorrhage. The basal cisterns appear patent. The posterior fossa is grossly within normal limits. There is no extra-axial collection. Once again atrophy and white matter ischemic changes. Left parietal infarct appears old but new from 2021. No evidence for fracture on the bone windows. CT cervical spine; Negative for acute fracture or dislocation. Degenerative changes are noted. CT/CT cervical spine wo IV con IMPRESSION: Negative acute noncontrast CT of the brain. No acute fracture or dislocation in the cervical spine. Degenerative changes are noted.
[2022-05-07 17:34] VITALS: BP 134/60; BP 138/76; PULSE 116; PULSE 120; RESP 20; TEMP 37.5; O2SAT 93; BMI 37.3
[2022-05-07 17:57] VITALS: O2SAT 95
--- NOTE | 2022-05-07 18:02 | ED.FALL ---
HPI - Fall General Chief Complaint: Fall Stated Complaint: fall, hit head Time Seen by Provider: 05/07/22 18:02 Source: EMS and RN notes reviewed Mode of arrival: EMS Limitations: altered mental status History of Present Illness HPI Narrative: Patient history of dementia , cva(left frontal lobe), diabetes came from skilled nursing tried to walk, lost balance and fell hitting his right side of the head came with laceration on the right forehead no loss of consciousness no seizures Related Data Previous Rx's Medication Instructions Recorded acetaminophen 325 mg tablet 650 mg PO Q6H PRN Pain, Mild (Pain 11/15/21 Scale 1-3) #60 tabs atorvastatin 40 mg tablet 40 mg PO BEDTIME #30 tabs 11/15/21 fenofibrate 54 mg tablet 54 mg PO DAILY #30 tabs 11/15/21 insulin glargine 100 unit/mL 32 unit (0.32 mL) subcut DAILY #10 11/15/21 subcutaneous solution (Lantus mL U-100 Insulin) insulin lispro 100 unit/mL See Protocol subcut QIDACHS #10 mL 11/15/21 subcutaneous solution (Humalog U-100 Insulin) multivitamin (Daily-Zafar tablet) 1 tab PO DAILY #30 tabs 11/15/21 thiamine mononitrate (vit B1) 100 100 mg PO DAILY #30 tabs 11/15/21 mg tablet Allergies Allergy/AdvReac Type Severity Reaction Status Date / Time No Known Allergies Allergy Verified 05/07/22 17:42 Review of Systems Review of Systems: Limited secondary to dementia Yes Unobtainable due to mental status PMFSH Past Medical History Medical History Abnormal finding on CT scan Dementia Self neglect Social History Social History Household Members: None Housing: Apartment Do you presently have visiting nurse or other home services: No Patient Tobacco Use Status: Never used Tobacco Second Hand Smoke Exposure: No Advance Directives: Yes Advance Directives on File: Yes Advance Directives Date on File: 11/07/21 service: No Current occupational status: retired Physical Exam Vital Signs: Vital Signs: Last Vital Signs Temp 99.5 F 05/07/22 22:02 Pulse 97 05/07/22 22:02 Resp 20 05/07/22 17:34 BP 125/65 05/07/22 22:02 Pulse Ox 94 05/07/22 22:02 O2 Del Method 05/07/22 22:02 O2 Flow Rate 2 05/07/22 17:57 BMI result Body Mass Index 37.3 Appearance: Alert. Oriented 2. No acute distress. Eyes: PERRLA, No Nystagmus HEENT: Pharynx normal. Oral Mucosa moist 3 cm laceration above right eyebrow Neck: Normal inspection. Neck supple. CVS: Normal heart rate and rhythm. Pulses normal. Respiratory: No respiratory distress. Equal air entry bilateral, no wheezing/rales/rhonchi Abdomen: Soft and nontender. Bowel sounds are present, no mass palpable, no CVA tenderness Skin: Skin warm and dry. Normal skin color. Normal skin turgor. Extremities: No lower extremity edema. No calf tenderness Neuro: Oriented X 2. Overall weakness+ and confused Medications Administered Discontinued Medications Generic Name Dose Route Start Last Admin Trade Name Freq PRN Reason Stop Dose Admin Lidocaine HCl 5 ml 05/07/22 21:04 05/07/22 22:01 Lidocaine Hcl 1 % Mpf 5 Ml Vial INFILTRATI 05/07/22 21:05 5 ml ONCE ONE Administration Procedures Laceration Laceration 1: Site: face (Forehead) Side (If applicable): right Size (cm): 4 Description: linear Depth: simple, single layer Local Anesthetic: lidocaine 1% Amount of anesthesia used (mL): 5 Skin layer closed with: nylon Size (cm): 5-0 Number of sutures: 5 Technique: simple, interrupted Medical Decision Making Medical Decision Making [facility] Narrative: Patient is post mechanical fall CT head and C-spine negative had laceration over right eyebrow which was sutured Discharge Plan Discharge Clinical Impression: Fall, Forehead laceration Patient Disposition: er [facility] Instructions: Laceration (ED), Fall Prevention for Older Adults (ED) Additional Instructions: Patient had 5 sutures placed which should be removed in [address] scan of the head and C-spine negative Prescriptions: No Action atorvastatin 40 mg Tablet 40 mg PO BEDTIME Qty: 30 0RF acetaminophen 325 mg Tablet 650 mg PO Q6H PRN (Reason: Pain, Mild (Pain Scale 1-3)) Qty: 60 0RF insulin glargine [Lantus U-100 Insulin] 100 unit/mL Solution 32 unit subcut DAILY Qty: 10 0RF fenofibrate 54 mg Tablet 54 mg PO DAILY Qty: 30 0RF insulin lispro [Humalog U-100 Insulin] 100 unit/mL Solution See Protocol subcut QIDACHS Qty: 10 0RF Protocol: Insulin Correction Scale Less than or equal to 110 ---- Give (units): 0 111 to 150 Give (units): 3 151 to 200 Give (units): 6 201 to 250 Give (units): 9 251 to 300 Give (units): 12 301 to 350 Give (units): 15 Greater than 350 Give (units): 18 Call MD if Blood Glucose > : 350 multivitamin [Daily-Zafar] Tablet 1 tab PO DAILY Qty: 30 0RF thiamine mononitrate (vit B1) 100 mg Tablet 100 mg PO DAILY Qty: 30 0RF
[2022-05-07] MEDS: Lidocaine HCl 1 % MPF 5 ML VIAL INFILTRATI (22:01)
[2022-05-07 22:02] VITALS: BP 125/65; PULSE 97; TEMP 37.5; O2SAT 94
--- NOTE | 2022-05-08 00:04 | PC.NURSE ---
Nurse assessment: Pt's V/S are stable, pt is a/o x 1. this nurse gave report to [facility] and spoke with nurse Way.
== END 2022-05-08 00:06 | disposition skilled nursing facility (03) ==
PROVIDERS: Emergency Provider Internal Medicine; PCP Internal Medicine
DX: S01.81XA Laceration without foreign body of other part of head, initial encounter (principal); R51.9 Headache, unspecified; M54.2 Cervicalgia; W01.10XA Fall on same level from slipping, tripping and stumbling with subsequent striking against unspecified object, initial encounter; Y93.9 Activity, unspecified; Y92.9 Unspecified place or not applicable; Y99.9 Unspecified external cause status; Z79.899 Other long term (current) drug therapy
CPT/HCPCS: 12013; 70450; 72125; 99283

== ENCOUNTER 2023-10-31 13:10 | Emergency (ER) | payer MEDICARE, OTHER, SELFPAY ==
--- NOTE | ~2023-10-31 | XR_ITS ---
EXAMINATION: XR CHEST CLINICAL INFORMATION: Weakness. COMPARISON: Chest radiograph dated 11/07/2021. TECHNIQUE: Frontal view of the chest was obtained. FINDINGS: The heart is normal in size for this projection. There is no consolidation. No large pleural effusion or pneumothorax. No acute osseous abnormality. XR/XR chest 1V IMPRESSION: No acute cardiopulmonary disease.
--- NOTE | ~2023-10-31 | CT_ITS ---
EXAMINATION: CT HEAD WITHOUT CONTRAST CLINICAL INFORMATION: Lethargy. COMPARISON: CT head dated 05/07/2022. TECHNIQUE: Contiguous axial imaging was performed from the skull base to vertex without intravenous administration of contrast. This CT examination was performed using dose optimization techniques as appropriate, variously including the following: *Automated exposure control *Adjustment of mA and/or kV according to patient size (this includes techniques or standardized protocols for targeted exams where dose is matched to indication/reason for exam; i.e. extremities or head) *Use of iterative reconstruction technique DLP: 850 mGy-cm FINDINGS: There is no acute intracranial hemorrhage. There is a small, chronic left frontal lobe infarction. No evidence of acute/subacute cerebral or cerebellar infarction. There is global cerebral volume loss with temporal lobe predominance. No midline shift or mass effect. No extra-axial fluid collection. No hydrocephalus. The right orbit is normal in appearance. 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 There is mild right maxillary sinus mucosal thickening. There is severe left sphenoid sinus mucosal disease. The mastoid air cells are clear. CT/CT head/brain wo IV con IMPRESSION: No acute intracranial abnormality. Chronic left frontal lobe infarct. Global cerebral volume loss with temporal lobe predominance.
--- NOTE | 2023-10-31 13:16 | ECG_ITS ---
Test Reason : ams Blood Pressure : / mmHG Vent. Rate : 069 BPM Atrial Rate : 069 BPM P-R Int : 172 ms QRS Dur : 090 ms QT Int : 392 ms P-R-T Axes : 014 007 109 degrees QTc Int : 420 ms Normal sinus rhythm Possible Inferior infarct (cited on or before 06-NOV-2021) T wave abnormality, consider lateral ischemia Abnormal ECG When compared with ECG of 07-NOV-2021 08:27, Inverted T waves have replaced nonspecific T wave abnormality in Lateral leads Referred By: Rashaad Shaw Electronically Signed By:Clyde Mcwilliams
--- NOTE | 2023-10-31 13:16 | ED_ITS ---
HPI - Altered Mental Status General Chief Complaint: Altered Mental Status Stated Complaint: ALTERED,LETHARGIC,DROOP,LKWT LAST NOC,SNF PER EMS Time Seen by Provider: 10/31/23 13:12 Source: EMS Mode of arrival: EMS Limitations: altered mental status History of Present Illness ED Provider: Dr. Shaw HPI narrative: Patient with increased lethargy. Normally alert, patient with prior CVA and dementia is not verbal at baseline MD complaint: decreased responsiveness Onset (ago): hour(s) Timing confirmed by: caregiver Severity: moderate Related Data Previous Rx's ?Medication ?Instructions ?Recorded acetaminophen 325 mg tablet 650 mg (2 x 325 mg) PO Q6H PRN 11/15/21 Pain, Mild (Pain Scale 1-3) #60 tabs atorvastatin 40 mg tablet 40 mg PO BEDTIME #30 tabs 11/15/21 fenofibrate 54 mg tablet 54 mg PO DAILY #30 tabs 11/15/21 insulin glargine 100 unit/mL 32 unit (0.32 mL) subcut DAILY #10 11/15/21 subcutaneous solution (Lantus mL U-100 Insulin) insulin lispro 100 unit/mL See Protocol subcut QIDACHS #10 mL 11/15/21 subcutaneous solution (Humalog U-100 Insulin) multivitamin (Daily-Zafar tablet) 1 tab PO DAILY #30 tabs 11/15/21 thiamine mononitrate (vit B1) 100 100 mg PO DAILY #30 tabs 11/15/21 mg tablet Allergies Allergy/AdvReac Type Severity Reaction Status Date / Time No Known Allergies Allergy Verified 10/31/23 13:20 Review of Systems 2 Review of Systems: Yes Unobtainable due to mental status Neurologic: Denies Sensory deficit (Neuro) [facility] Past Medical History Medical History Abnormal finding on CT scan Self neglect Dementia Social History Social History Household Members: None Housing: Apartment Do you presently have visiting nurse or other home services: No Comment: refused bed alarm Patient Tobacco Use Status: Never used Tobacco Second Hand Smoke Exposure: No Advance Directives: Yes Advance Directives on File: Yes Advance Directives Date on File: 11/07/21 Do you have a plan to hurt others: No Plan service: No Current occupational status: retired Physical Exam ED Vital Signs: Vital Signs - 24 hr 10/31/23 13:19 10/31/23 14:28 Temperature 97.6 F Pulse Rate 72 62 Respiratory Rate 16 16 Blood Pressure 146/69 H 130/74 Pulse Oximetry 95 94 Oxygen Delivery Method Room Air Room Air BMI result Body Mass Index 32.9 Const Other: chronically ill appearing male Nutritional Appearance: obese Limitations: altered mental status HENMT Head: Yes normal to inspection Ears: external ears normal General nose exam: Normal external nose present Mouth: Normal oral and palatal mucosa present and oropharynx normal Eyes Other: opens eyes to noxious stimuli Neck Neck: Yes normal visual inspection Chest Chest palpation & inspection: normal inspection of the chest Resp Auscultation: clear to auscultation bilaterally Cardio Jugular venous distension: no JVD Rate: regular rate Rhythm: regular rhythm Heart sounds: S1 normal heart sound present and S2 normal heart sound present GI Inspection: Yes normal to inspection Palpation (GI): Soft to palpation, nontender and No hepatosplenomegaly present Auscultation: normal bowel sounds General: Yes no CVA tenderness Back/Spine/Pelvis Back: no CVA tenderness Skin General skin exam: no rashes or lesions noted Neuro Other: opens eyes, lifts head moves all extremities to noxious stimuli Sensory Exam: No Sensory deficit (Neuro) Extrem General: Yes normal to inspection Psych Appearance: grossly normal Course Reevaluation(s) Reevaluation #1: Patient still lethargic responding to touch, will obtain a head CT and place in physician observation at 3:36 because the patient needs time to see if his lethargy resolves Time: 15:36 Medical Decision Making Differential Diagnosis Differential Diagnoses: The differential diagnosis associated with the presentation includes (encephalopathy, UTI, electrolyte abnormality, renal failure, cerebral bleed) Admission/Observation Consideration of admission/observation: Escalation of care including admission/observation considered (upon arrival patient was considered for admission) Lab Data 10/31/23 13:48 10/31/23 13:48 Labs: Lab Results 10/31/23 10/31/23 Range/Units 13:45 13:48 WBC 7.6 (4.8-10.8) X10*3/uL RBC 4.02 L (4.60-5.80) X10*6/uL Hgb 12.9 L (14.0-18.0) g/dl Hct 36.7 L (42.0-52.0) % MCV 91.3 (80.0-98.0) fL MCH 32.1 (27.0-33.0) pg MCHC 35.1 (31.0-36.0) g/dl RDW 13.4 (11.0-16.0) % Plt Count 178 (160-400) X10*3/uL MPV 10.9 (9.4-12.4) fL Immature Gran % (Auto) 0.5 H (0.0-0.4) % Neut % (Auto) 47.0 (45-73) % Lymph % (Auto) 37.9 (20-40) % [place] % (Auto) 9.4 (2-11) % Eos % (Auto) 4.9 H (0-4) % Baso % (Auto) 0.3 (0-2) % Lymph # (Auto) 2.9 (1.2-4.9) X10*3/uL [place] # (Auto) 0.7 (0.1-1.2) X10*3/uL Eos # (Auto) 0.4 (0.0-0.4) X10*3/uL Baso # (Auto) 0.0 (0.0-0.2) X10*3/uL Abs Immat Gran (auto) 0.04 H (0.00-0.03) X10*3/uL Absolute Neuts (auto) 3.6 (2.0-8.3) x10*3/uL Absolute Nucleated RBC 0.000 (0.0-0.012) X10*3/uL Nucleated RBC % (auto) 0.0 (0.0-0.2) /100WBC Sodium 140 (135-145) mmol/L Potassium 3.7 (3.3-5.1) mmol/L Chloride 104 (96-108) mmol/L Carbon Dioxide 29 (22-29) mmol/L Anion Gap 11 L (12-20) BUN 17 H (9-16) mg/dL Creatinine 0.89 (0.5-1.4) mg/dL Estim Creat Clear Calc 79.9 Estimated GFR > 60 Random Glucose 129 H (60-115) mg/dL Calcium 9.5 (8.4-10.2) mg/dL Total Bilirubin 0.3 (0.0-1.0) mg/dL AST 35 (5-37) U/L ALT 57 H (0-40) U/L Alkaline Phosphatase 90 (39-117) U/L Troponin I High Sens 3.0 (<3.5-35.0) ng/L Total Protein 6.7 (6.5-8.0) g/dL Albumin 3.8 (3.5-5.0) g/dL Urine Color Yellow Urine Appearance Clear Urine pH 5.5 (5.0-9.0) Ur Specific [place] 1.010 (1.005-1.025) Urine Protein Negative (Neg-Trace) mg/dL Urine Glucose (UA) Negative (Negative) mg/dL Urine Ketones Negative (Negative) mg/dL Urine Blood Negative (Negative) Urine Nitrite Negative (Negative) Ur Leukocyte Esterase Negative (Negative) Independent Interpretation I performed an independent interpretation of an: EKG (sinus 70, flipped ts in I and AVL) Independent Historian Clinical information obtained from an independent historian. History obtained from or confirmed by: EMS Prescription Management I considered prescription management with: Antibiotic (no infection found) Chronic Conditions Patient?s care impacted by: Diabetes, Hypertension and Other (dementia) Discharge Plan Discharge Clinical Impression: Altered mental status, Dementia Patient Disposition: Still a Patient Prescriptions: No Action atorvastatin 40 mg Tablet 40 mg PO BEDTIME Qty: 30 0RF acetaminophen 325 mg Tablet 650 mg PO Q6H PRN (Reason: Pain, Mild (Pain Scale 1-3)) Qty: 60 0RF insulin glargine [Lantus U-100 Insulin] 100 unit/mL Solution 32 unit subcut DAILY Qty: 10 0RF fenofibrate 54 mg Tablet 54 mg PO DAILY Qty: 30 0RF insulin lispro [Humalog U-100 Insulin] 100 unit/mL Solution See Protocol subcut QIDACHS Qty: 10 0RF Protocol: Insulin Correction Scale Less than or equal to 110 ---- Give (units): 0 111 to 150 Give (units): 3 151 to 200 Give (units): 6 201 to 250 Give (units): 9 251 to 300 Give (units): 12 301 to 350 Give (units): 15 Greater than 350 Give (units): 18 Call MD if Blood Glucose > : 350 multivitamin [Daily-Zafar] Tablet 1 tab PO DAILY Qty: 30 0RF thiamine mononitrate (vit B1) 100 mg Tablet 100 mg PO DAILY Qty: 30 0RF Print Language: [place]
[2023-10-31 13:19] VITALS: BP 140/66; BP 146/69; PULSE 72; PULSE 80; RESP 16; TEMP 36.4; O2SAT 95; O2SAT 96; BMI 32.9
--- NOTE | 2023-10-31 13:32 | PC.NURSE ---
Liza Atkinson - ([phone]) - sister.
--- NOTE | 2023-10-31 13:44 | PC.NURSE ---
straight catheterization performed. 300ml of cloudy/dark yellow urine noted immediately post output. pt tolerated well. urine obtained/sent to lab. plan of care ongoing.
--- NOTE | 2023-10-31 13:50 | PC.NURSE ---
labs obtained/sent to lab. chest xray being performed at this time.
[2023-10-31 13:53] LABS: MANUAL DIFF FLAG NO
[2023-10-31 13:57] LABS: Basophils Percent Auto 0.3 % (0-2); Eosinophils Absolute Auto 0.4 X10*3/uL (0.0-0.4); Eosinophils Percent Auto 4.9 % (0-4); Hematocrit 36.7 % (42.0-52.0); Hemoglobin 12.9 g/dl (14.0-18.0); Imm Gran Abs Auto 0.04 X10*3/uL (0.00-0.03); Imm Gran Pct Auto 0.5 % (0.0-0.4); Lymphocytes Absolute Auto 2.9 X10*3/uL (1.2-4.9); Lymphocytes Percent Auto 37.9 % (20-40); Mean Corpuscular HGB Conc 35.1 g/dl (31.0-36.0); Mean Corpuscular Hemoglobin 32.1 pg (27.0-33.0); Mean Corpuscular Volume 91.3 fL (80.0-98.0); Mean Platelet Volume 10.9 fL (9.4-12.4); Monocytes Absolute Auto 0.7 X10*3/uL (0.1-1.2); Monocytes Percent Auto 9.4 % (2-11); Neutrophils Absolute Auto 3.6 x10*3/uL (2.0-8.3); Platelet Count 178 X10*3/uL (160-400); Red Blood Count 4.02 X10*6/uL (4.60-5.80); Red Cell Distribution Width 13.4 % (11.0-16.0); White Blood Count 7.6 X10*3/uL (4.8-10.8)
[2023-10-31 13:58] LABS: Appearance Urine Clear; Color Urine Yellow; Glucose Urine UA Negative (Negative); Leukocyte Esterase Urine Negative (Negative); Nitrite Urine Negative (Negative); PH 5.5 (5.0-9.0); Urine Blood Negative (Negative); Urine Ketones Negative (Negative); Urine Protein Negative (Neg-Trace)
[2023-10-31 14:15] LABS: Alanine Aminotransferase 57 U/L (0-40); Albumin Level 3.8 g/dL (3.5-5.0); Alkaline Phosphatase 90 U/L (39-117); Anion Gap 11 (12-20); Aspartate Amino Transferase 35 U/L (5-37); Bilirubin Total 0.3 mg/dL (0.0-1.0); Blood Urea Nitrogen 17 mg/dL (9-16); Calcium 9.5 mg/dL (8.4-10.2); Carbon Dioxide 29 mmol/L (22-29); Chloride 104 mmol/L (96-108); Creatinine Clr Calc Pharmacy 79.9; Estimated Glomerular Filt Rate > 60; Glucose Random 129 mg/dL (60-115); Potassium 3.7 mmol/L (3.3-5.1); Sodium 140 mmol/L (135-145); Total Protein 6.7 g/dL (6.5-8.0)
[2023-10-31 14:28] VITALS: BP 130/74; PULSE 62; RESP 16; O2SAT 94
[2023-10-31 15:54] VITALS: BP 125/68; PULSE 68; RESP 16; TEMP 36.5; O2SAT 95
[2023-10-31 16:00] VITALS: BP 126/69; PULSE 68; RESP 12; TEMP 36.2; O2SAT 97
--- NOTE | 2023-10-31 18:39 | PC.NURSE ---
report given to DAIANA Mcgill at [facility]. report also given to LUCIANO hubbard at this time. pt currently being transported back to facility at this time.
[2023-10-31 18:40] VITALS: BP 126/69; PULSE 68; RESP 12; TEMP 36.2; O2SAT 97
== END 2023-10-31 18:41 ==
PROVIDERS: Emergency Provider Emergency Medicine; PCP Internal Medicine
DX: F03.90 Unspecified dementia, unspecified severity, without behavioral disturbance, psychotic disturbance, mood disturbance, and anxiety (principal); R41.82 Altered mental status, unspecified; R29.810 Facial weakness; R51.9 Headache, unspecified; R94.31 Abnormal electrocardiogram [ECG] [EKG]; Z79.899 Other long term (current) drug therapy
CPT/HCPCS: 36415; 51701; 70450; 71045; 80053; 81003; 84484; 85025; 93005; 99284; 99285

== ENCOUNTER → 2023-10-31 13:16 | Outpatient (BNV) | payer MEDICARE, OTHER, SELFPAY | PROVIDERS: Emergency Provider Emergency Medicine; Visit Provider Internal Medicine Cardiovascular Disease | DX: R41.82 Altered mental status, unspecified (principal) | CPT/HCPCS: 93010 ==